=== PATIENT | female | born 1960 | race Caucasian/White ===

== ENCOUNTER 2020-06-13 11:42 | Outpatient (CLI) | payer OTHER, SELFPAY ==
[2020-06-13 12:45] LABS: Anion Gap 9.4 mmol/L (7-16); Blood Urea Nitrogen 14 mg/dL (7-17); Calcium 9.2 mg/dL (8.4-10.2); Carbon Dioxide 28 mmol/L (22-30); Chloride 101 mmol/L (98-107); Cholesterol 200 mg/dL (0-200); Estimated Glomerular Filt Rate > 60; Glucose 84 mg/dL (65-105); HDL Direct 54 mg/dL; Potassium 4.4 mmol/L (3.4-5.0); Sodium 134 mmol/L (137-145); Triglycerides 88 mg/dL (<150)
[2020-06-13 12:55] LABS: LDL Cholesterol Direct 114 mg/dL
[2020-06-13 14:02] LABS: Hepatitis C Virus Antibody Negative (Negative)
== END 2020-06-13 11:43 | disposition home or self-care (01) ==
LOC: ANHLAB 11:48
PROVIDERS: PCP Family Medicine; Visit Provider Family Medicine
DX: Z00.00 Encounter for general adult medical examination without abnormal findings (principal); Z12.39 Encounter for other screening for malignant neoplasm of breast
CPT/HCPCS: 36415; 80048; 80061; 86803

== ENCOUNTER 2020-07-04 10:36 | Outpatient (CLI) | payer OTHER, SELFPAY ==
--- NOTE | ~2020-07-04 | MM_ITS ---
EXAMINATION: MM screening eric BI w leigh ann HISTORY: Screening mammogram TECHNIQUE: Craniocaudal and mediolateral oblique 3-D tomosynthesis images were obtained and synthetic 2-D images were generated. CAD analysis was submitted and interpreted. COMPARISON: No prior mammogram is available for comparison at this institution. BREAST PARENCHYMAL COMPOSITION: There are scattered areas of fibroglandular density. A the paranasal FINDINGS: There is no evidence of suspicious mass, calcification, or architectural distortion to sugg est malignancy in either breast. There has been no suspicious interval change. IMPRESSION: 1. No mammographic evidence of malignancy. 2. Recommend routine screening mammography in one year. BI-RADS Category 1: Negative Reviewed, dictated and finalized at location A.
== END 2020-07-04 10:37 | disposition home or self-care (01) ==
LOC: ANHIMG 10:43
PROVIDERS: PCP Family Medicine; Visit Provider Family Medicine
DX: Z12.31 Encounter for screening mammogram for malignant neoplasm of breast (principal)
CPT/HCPCS: 77063; 77067

== ENCOUNTER 2021-08-14 16:20 | Outpatient (CLI) | payer OTHER, SELFPAY ==
--- NOTE | ~2021-08-14 | MM_ITS ---
EXAMINATION: MM screening eric BI w leigh ann HISTORY: Screening TECHNIQUE: Craniocaudal and mediolateral oblique 3-D tomosynthesis images were obtained and synthetic 2-D images were generated. CAD analysis was submitted and interpreted. COMPARISON: 07/04/2020 BREAST PARENCHYMAL COMPOSITION: There are scattered areas of fibroglandular density. FINDINGS: There is no evidence of suspicious mass, calcification, or architectural distortion to sugg est malignancy in either breast. There has been no suspicious interval change. IMPRESSION: 1. No mammographic evidence of malignancy. 2. Recommend routine screening mammography in one year. BI-RADS Category 1: Negative Reviewed, dictated and finalized at location A.
== END 2021-08-14 16:21 | disposition home or self-care (01) ==
LOC: ANHIMG 16:24
PROVIDERS: PCP Family Medicine; Visit Provider Obstetrics & Gynecology
DX: Z12.31 Encounter for screening mammogram for malignant neoplasm of breast (principal)
CPT/HCPCS: 77063; 77067

== ENCOUNTER 2022-11-18 14:53 | Outpatient (CLI) | payer OTHER, SELFPAY ==
--- NOTE | ~2022-11-18 | MM_ITS ---
EXAMINATION: MM screening eric BI w leigh ann HISTORY: Screening mammogram TECHNIQUE: Craniocaudal and mediolateral oblique 3-D tomosynthesis images were obtained and synthetic 2-D images were generated. CAD analysis was submitted and interpreted. COMPARISON: 08/14/2021, 07/04/2020 BREAST PARENCHYMAL COMPOSITION: There are scattered areas of fibroglandular density. FINDINGS: No suspicious mass, calcification, or architectural distortion are identified in either mj ast to suggest malignancy. There has been no suspicious interval change. IMPRESSION: 1. No mammographic evidence of malignancy. 2. Recommend routine screening mammography in one year. BI-RADS Category 1: Negative Reviewed, dictated and finalized at location A. NO FLOOR PERSON
== END 2022-11-18 14:54 | disposition home or self-care (01) ==
PROVIDERS: PCP Family Medicine; Visit Provider Family Medicine
DX: Z12.31 Encounter for screening mammogram for malignant neoplasm of breast (principal)
CPT/HCPCS: 77063; 77067

== ENCOUNTER 2023-10-21 01:28 | Day surgery (SDC) | payer OTHER, SELFPAY ==
[2023-10-07 09:53] VITALS: BMI 29.6
--- NOTE | 2023-10-19 09:23 | SUR.PREOP ---
Patient called regarding upcoming procedure. Reviewed preop instructions, appointment times, and procedure prep.
--- NOTE | 2023-10-20 18:17 | PM.HPGS ---
History of Present Illness History of Present Illness Consent: Risks, benefits, and alternatives have been discussed and questions answered. Patient agrees to proceed with procedure. Chief complaint: + cologuard Narrative: Missy Anton is a 63 year old female Referred for colon cancer screening. She had a positive Cologuard. Review of Systems Review of Systems: All systems reviewed & are unremarkable except as noted in HPI and below PMFSH Social History Social History Smoking status: Never smoker Substance use type: does not use Living arrangements: with family Spiritual care concerns: No Meds Home Medications and Allergies Home Medications Medication Instructions Recorded Confirmed Type atorvastatin 20 mg tablet 20 mg PO DAILY 10/07/23 10/07/23 History levothyroxine 75 mcg tablet 75 mcg PO DAILY 10/07/23 10/21/23 History Allergies Allergy/AdvReac Type Severity Reaction Status Date / Time No Known Allergies Allergy Verified 10/21/23 08:37 Exam Resp: Auscultation: clear to auscultation bilaterally Cardio: Rate: regular rate Rhythm: regular rhythm GI: GI Palp: Yes Soft to palpation and No Tenderness to palpation present (GI) Assessment and Plan Assessment and plan (1) Positive colorectal cancer screening using Cologuard test: Code(s): R19.5 - Other fecal abnormalities Status: Acute Assessment and Plan: Colonoscopy with possible biopsy or polypectomy or cautery or injection of substances.
[2023-10-21 08:38] VITALS: BP 114/60; PULSE 77; RESP 18; TEMP 36.2; O2SAT 100
[2023-10-21] MEDS: LACTATED RINGERS 1,000 ML 150 ML IV CONT (08:42)
[2023-10-21 10:01] VITALS: BP 92/56; PULSE 73; RESP 30; O2SAT 98
[2023-10-21 10:11] VITALS: BP 113/66; PULSE 69; RESP 23; O2SAT 100
[2023-10-21 10:21] VITALS: BP 115/71; PULSE 66; RESP 19; O2SAT 100
== END 2023-10-21 10:28 | disposition home or self-care (01) ==
PROVIDERS: PCP Family Medicine; Visit Provider Internal Medicine Gastroenterology
PROC: 0DJD8ZZ Inspection of Lower Intestinal Tract, Via Natural or Artificial Opening Endoscopic (ICD-10-PCS; CPT 45378; principal; 2023-10-21 09:30)
DX: Z12.11 Encounter for screening for malignant neoplasm of colon (principal); R19.5 Other fecal abnormalities
CPT/HCPCS: 45378; J2704; J7120

== ENCOUNTER 2024-04-12 16:48 | Outpatient (CLI) | payer OTHER, SELFPAY ==
--- NOTE | ~2024-04-12 | MM_ITS ---
EXAMINATION: MM screening eric BI w leigh ann HISTORY: Screening TECHNIQUE: Craniocaudal and mediolateral oblique 3-D tomosynthesis images were obtained and synthetic 2-D images were generated. CAD analysis was submitted and interpreted. COMPARISON: Comparison to multiple prior studies sequentially, with oldest reviewed study dated 07/04. BREAST PARENCHYMAL COMPOSITION: Not dense: There are scattered areas of fibroglandular density. FINDINGS: There is no evidence of suspicious mass, calcification, or architectural distortion to sugg est malignancy in either breast. There has been no suspicious interval change. IMPRESSION: 1. No mammographic evidence of malignancy. 2. Recommend routine screening mammography in one year. BI-RADS Category 1: Negative Reviewed, dictated and finalized at location B.
== END 2024-04-12 16:49 | disposition home or self-care (01) ==
PROVIDERS: Visit Provider Family Medicine
DX: Z12.31 Encounter for screening mammogram for malignant neoplasm of breast (principal)
CPT/HCPCS: 77063; 77067

== ENCOUNTER 2025-03-22 09:47 | Outpatient (CLI) | payer OTHER, SELFPAY ==
--- OUTSIDE RECORDS SUMMARY | 2025-03-22 10:33 | XMS_ITS | Referral Summary ---
Author Organization [facility] Address [address] [place] [address] Care Team Providers Care Vending Supervisor Name Role Phone Norma Perry BOARDING HOUSE COOK Primary Care Provider Allergies No known active allergies Medications atorvastatin (LIPITOR) 20 mg tablet Take 1 tablet every day by oral route as directed for 90 days. 04/04/2024 Active levothyroxine (SYNTHROID) 75 mcg tablet Take 1 tablet (75 mcg total) by mouth daily 04/04/2024 Active vitamin E 400 unit capsule Take 1 capsule (400 Units total) by mouth Active Active Problems Problem Noted Date Diagnosed Date Hyperlipidemia 09/02/2023 Hypothyroidism 05/19/2005 Social History Tobacco Use Types Packs/Day Years Used Date Smoking Tobacco: Never Smokeless Tobacco: Never AUDIT-C Answer Date Recorded Q1: How often do you have a drink containing alc ohol? 2-4 times a month 07/07/2024 Average Number of Drinks Not on file 024 Frequency of Binge Drinking Not on file 06/17 Personal Safety Answer Date Recorded Getting School Help Needed Not on file 04/12 Comments Unknown Sex and Gender Information Value Date Recorded Sex Assigned at Not on file Legal Sex Female 2:25 PM CDT Gender Identity Not on file Sexual Orientation Not on file Last Filed Vital Signs Vital Sign Reading Time Taken Comments Blood Pressure 108/69 07/07/2024 8:02 AM CDT Pulse 74 07/07/2024 8:02 AM CDT Temperature 36.2 C (97.2 F) 07/07/2024 8:02 AM CDT Respiratory Rate - - Oxygen Saturation 100% 07/07/2024 8:02 AM CDT Inhaled Oxygen Concentration - - Weight 88.9 kg (196 lb) 07/07/2024 8:02 AM CDT Height 172.7 cm (5' 8 ) 07/07/2024 8:02 AM CDT Body Mass Index 29.8 07/07/2024 8:02 AM CDT Plan of Treatment Not on file Insurance [facility] [id number] [facility] [id number] Care Teams Vending Supervisor Relationship Specialty Start Date End Date Norma Perry NP [address] [facility] [place] [address] PCP - General Nurse Practitioner 07/07/24
--- OUTSIDE RECORDS SUMMARY | 2025-03-22 10:33 | XMS_ITS | Clinical Summary ---
Author Organization [facility] Address [facility] [place] [address] Care Team Providers Care Solderer Assembly Repair Name Role Phone Chel Palomares NP Primary Care Provider [phone] Gilberto Osei MD Unavailable [phone] Allergies No known active allergies Medications atorvastatin (LIPITOR) 20 MG tablet Take 1 tablet (20 mg total) by mouth daily. DIRECTED Active levothyroxine (SYNTHROID) 75 MCG tablet Take 1 tablet (75 mcg total) by mouth daily. Active vitamin D3, cholecalciferol, (D 1000) 25 mcg capsule Take 1 capsule (1,000 Units total) by mouth. Active ubrogepant (UBRELVY) 100 MG tabletIndication s:Migraine without aura, not intractable, without status migrainosus Take 1 tablet (100 mg total) by mouth 2 (two) times daily as needed. Max of 2 tablets (200 mg) in 24 hours 16 tablet 11 4 Active Active Problems No known active problems Encounters Date Type Department Care Team Description 01/26/2025 [facility] [address] [address] Jayy Brown MD Results 01/16/2025 2:45 PM TRAVEL DIRECTOR Office Visit [facility] [address] [place] [address] Jayy Brown MD Follow Up (2-3mo) 01/16/2025 Travel 12/23/2024 10:40 AM TRAVEL DIRECTOR Office Visit [facility] [address] [facility] [place], [address] [place] [phone] Gilberto Osei MD Follow Up (3mo migraine) 12/23/2024 Travel from Last 3 Months Family History Medical History Relation Comments Dementia Father Stroke Father Cancer Paternal Uncle Relation Status Comments Father Mother Alive Paternal Uncle Social History Tobacco Use Types Packs/Day Years Used Date Smoking Tobacco: Never Passive Smoke Exposure: Never Smokeless Tobacco: Never Tobacco Cessation:Counseling Given: Yes Alcohol Use Standard Drinks/Week Comments Yes 0 (1 standard drink = 0.6 oz pur e alcohol) special occations only PHQ-2 Answer Date Recorded Patient Health Questionnaire-2 Score 0 09/27/2024 Comments No Sex and Gender Information Value Date Recorded Sex Assigned at Female 12/14/2024 11:29 AM TRAVEL DIRECTOR Legal Sex Female 1:44 PM CDT Gender Identity Not on file Sexual Orientation Not on file Last Filed Vital Signs Vital Sign Reading Time Taken Comments Blood Pressure 118/72 01/16/2025 2:58 PM TRAVEL DIRECTOR Pulse 66 01/16/2025 2:58 PM TRAVEL DIRECTOR Temperature 36.6 C (97.8 F) 12/23/2024 10:47 AM TRAVEL DIRECTOR Respiratory Rate - - Oxygen Saturation 93% 01/16/2025 2:58 PM TRAVEL DIRECTOR Inhaled Oxygen Concentration - - Weight 90.6 kg (199 lb 12.8 oz) 01/16/2025 2:58 PM TRAVEL DIRECTOR Height 172.7 cm (5' 8 ) 01/16/2025 2:58 PM TRAVEL DIRECTOR Body Mass Index 30.38 01/16/2025 2:58 PM TRAVEL DIRECTOR Plan of Treatment Upcoming Encounters Date Type Department Care Team (Late st Contact Info) Description 04/13/2025 12:45 PM CDT Appointment [facility] [place] [address] Jayy Brown MD [address] [facility] [place] [address] 04/13/2025 2:15 PM CDT Office Visit [facility] [place] [place] [address] Jayy Brown MD [address] [facility] [place] [address] 05/25/2025 8:20 AM CDT [facility] [address] [facility] [place], [address] [place] [phone] Son Yip MD [address] [facility] [place] [address] 06/05/2025 11:20 AM CDT [facility] [address] [facility] [place], [address] [place] [phone] Gilberto Osei MD [address] [facility] [place] [address] 08/07/2025 9:15 AM CDT Office Visit [facility] [address] [place] [address] Jayy Brown MD [address] [facility] [place] [address] Health Maintenance Due Date Last Done Comments Colorectal Cancer Screening Colonoscopy (10 Years) 1962 Annual Physical 1965 Hepatitis C 1980 Cervical Cancer Screening Pap with HPV Testing (Age 30 to 64) Every 5 Years 1992 Pneumococcal Vaccine: 50+ Years (1 of 1 - PCV) 2012 Mammogram Screening 12/27/2020 12/27/2018, 06/08/2017, 02/04/2016, Additional history exists COVID-19 Vaccine ( season) 2024 09/02/2022, 06/10/2022, 10/03/2021, Additional history exists Cervical Cancer Screening Pap Smear (Age 30 to 64) Every 3 Years 08/06/2024 08/06/2021 Cervical Cancer Screening with HPV 08/06/2024 PHQ-2 (Physician Tejon) 11/16/2024 09/27/2024 DTaP, Tdap and Td Vaccines (4 - Td or Tdap) 01/03/2029 01/03/2019, 12/20/2018, 10/16/2008, Additional history exists RSV Immunization or 60+ Years (1 - 1-dose 75+ series) 2037 Zoster Vaccines Completed 09/18/2020, 01/2020, 07/04/2020, Additional history exists Meningococcal B Vaccine Aged Out No l onger eligible based on patient's age to complete this topic Meningococcal Vaccine Aged Out No ryan shirley eligible based on patient's age to complete this topic RSV Immunizations Under 20 Months Aged Out No longer eligible based on patient's age to complete this topic Procedures Procedure Name Priority Date/Time Associated Diagnosis Comments EVENT RECORDER (ECG) UP TO 30 DAYS COMPLETE Routine 01/16/2025 3:43 PM TRAVEL DIRECTOR Palpitations Dizziness from Last 3 Months Results * CLINIC - OUTPATIENT EVENT RECORDER (ECG) UP TO 30 DAYS COMPLETE (Holter) (01/16/2025 3:43 PM TRAVEL DIRECTOR) [facility]ative [facility] 01/16/2025 3:43 PM TRAVEL DIRECTOR [place], [place] [address] MOBILE CARDIAC BULLDOZER PRESS OPERATOR REPORT Patient Name: Missy Anton : 1960 [employer]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 Interpretable data was 25 days, 18 hours and 12 minutes (88% of monitoring period). The baseline rhythm was Sinus Rhythm with heart rates ranged between 51 and 189 beats per minute, with average rate of 71 beats per minute. No Second Degree AV Block Type II. No Third Degree AV Block. No Pauses. There were 2,615 Supraventricular Ectopic beats with a burden of <1%. 9 Supraventricular Tachycardia events - the longest episode was 8.1s on 12/29 19:45, and the fastest episode was 187 BPM on 01/06 06:49. There were 835 Ventricular Ectopic beats with a burden of <1%. No Ventricular Tachycardia. No Atrial Fibrillation. 6 patient triggered events, 1 had symptoms specified - all in normal sinus rhythm. CONCLUSION: A 26-day mobile cardiac telemetry was only notable Interpreting Auto Cleaner: Dr. Jayy Gann Transcribed date: 01/26/2025 us Jayy Brown MD CV VASCULAR ORDERABLES Fi nal Result [facility] from Last 3 Months Insurance [employer] [facility] Care Teams Solderer Assembly Repair Relationship Specialty Start Date End Date Chel Palomares NP [address] [place] [phone] PCP - General 09/26/24 Gilberto Osei MD [address] [place] [address] Physician NEUROMUSCULOSKELETAL MEDICINE 09/27/24
--- OUTSIDE RECORDS SUMMARY | 2025-03-22 10:33 | XMS_ITS | Clinical Summary ---
Author Organization [facility] Address [address] [place] [address] Care Team Providers Care Well Service Floorperson Name Role Phone Norma Perry JOCKEY AGENT Primary Care Provider Allergies No known active [...] on file Sexual Orientation Not on file Obstetrics History Last Filed Vital Signs Vital Sign Reading [...] 07/07/2024 8:02 AM CDT Plan of Treatment Health Maintenance Due Date Last Done Comments Cervical Cancer Screening 1960 Colon Cancer Screening-Colonoscopy 1962 Depression Screening 1962 Hepatitis C Screening 1962 Hepatitis B Screening 1980 Regular Well Visit/Exam 18-64 1980 Breast Cancer Screening-Mammogram 11/18/2023 11/18/2022 Covid-19 Vaccine ( season) 2024 09/02/2022, 06/10/2022, 10/03/2021, Additional history exists Influenza Vaccine (#1) 2024 , 09/02/2022, 08/07/2021, Additional history exists DTaP/Tdap/Td Vaccine (4 - Td or Tdap) 01/03/2029 01/03/2019, 12/20/2018, 10/16/2008, Additional history exists Zoster Vaccine Completed 09/18/2020, 06/16, 08/14/2014 Pneumococcal vaccine <65 Aged Out No longer eligible based on patient's age to complete this topic Insurance [facility] [id number] [facility] [id number] Care Teams Well Service Floorperson Relationship Specialty Start Date End Date Norma Perry NP [address] [facility] [place], [place] [id number] PCP - General Nurse Practitioner 07/07/24
--- OUTSIDE RECORDS SUMMARY | 2025-03-22 10:34 | XMS_ITS | Clinical Summary ---
Author Organization [facility] Address [address] [place] [address] Care Team Providers Care Material Requirements Planning Manager Name Role Phone Unavailable Primary Care Provider Unavailabl e Immunizations Immunization Administration Dates Next Due Covid-19, Mrna, Lnp-s, PF, 5 0 mcg/0.25 mL dose (Moderna) 10/03/2021 Social History Tobacco Use Types Packs/Day Years Used Date Smoking Tobacco: Never Assessed Comments Unknown Sex and Gender Information Value Date Recorded Sex Assigned at Not on file Legal Sex Female 12:42 PM LPN CMA Gender Identity Not on file Sexual Orientation Not on file Plan of Treatment Health Maintenance Due Date Last Done Comments Hepatitis C Virus (HCV) Screening 1962 Colonoscopy 2007 Colorectal Cancer Screening 2007 Cologuard 2012 Immunochemical Fecal Occult Blood 2012 Pneumococcal Immunization (50+ years) (1 of 1 - PCV) 2012 Influenza Immunization (#1) 07/17/202407/18, 09/10/2020, 09/10/2020, Additional history exists SARS-COV-2 Immunization ( season) 2024 10/03/2021, 03/01/2021, 01/29/2021 Respiratory Syncytial Virus (RSV) Immunization (Adult) (1 - 1-dose 75+ series) 2037 DTaP/Tdap/Td Immunization Discontinued 2018, 12/20/2018, 10/16/2008, Additional history exists TdaP Immunization Completed 01/03/2019, , 10/16/2008 Zoster Immunization Completed 09/18/2020, 09/18/2020, 07/04/2020, Additional history exists Hepatitis B Immunization Aged Out No longer eligible based on patient's age to complete this topic Meningococcal Immunization (ACWY) Aged Out No longer eligible based on patient's age to complete this topic Rotavirus Immunization Aged Out No lo nger eligible based on patient's age to complete this topic
--- OUTSIDE RECORDS SUMMARY | 2025-03-22 10:34 | XMS_ITS | Data Portability ---
Author Organization [facility], [facility] Address [address] [place] [address] Care Team Providers Care Research Associate Molecular Biology Name Role Phone CHERRIE JUAN ANOHEMY Primary Care Provider Assessment Encounter Date Assessment Date Assessment LastModified by Organization Details LastModified Time 08/06/2021 08/06/2021 healthy female exam/menopaus e patient declines std testing pap done with HPV mammogram ordered and encouraged colonoscopy due next year dexa baseline next year. Encouraged weight bearing exercise and 1500mg daily of Calcium with Vitamin D FU 1 year or prn Not available 08/06/2021 13:32:53 Plan of Treatment Reminders Order Date Submit Date Provider Last Modified By Organization Details Last Modified Time Details Appointments None record ed. Lab None record ed. Referral None record ed. Procedures None record ed. Surgeries None record ed. Imaging None record ed. Medication Orders None record ed. Patient TargetsNo targets recorded. Patient InstructionsNo instructions recorded. 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 None Reported. Results Created Date Observation Date Name Description Value Unit Range Abnormal Flag Note LastModifiedBy Organization Detail LastModifiedTime 08/06/20 21 08/06/2021 IMAGE GUIDE D PAP AND HPV REGAR DLESS image guided Pap, HPV regardless of Pap result SEE RESULT S BELOW CASE REPOR T: Cytol ogy Gynec ologi trudi Repor t Case: [id number] Autho deja g Provi fabiano: Robina Mancera MD Colle cted: 08/06 1201 Order ing Locat ion: [place] [facility] Recei deepali: 08/07 0116 First Scree n: Sherm an, Patito Speci men: Scree terrance Pap - Image d, Cervi x STATE MENT OF ADEQU ACY: Satis facto ry for evalu ation Trans forma tion zone compo nent canno t be defin itive ly ident ified due to the prese nce of atrop hy or other hormo nal abarca es FINAL DIAGN OSIS: Negat brittanie for Intra epith elial Lesio n or [place] (NIL) Atrop hic cell zeeshan rn Elect hector condon viki d by Patito Win on 2020 at 4:38 PM ----- ----- ----- ----- ----- ----- ----- ----- ----- ----- ----- ----- ----- ----- ----- ----- ----- ---- HPV RESUL TS: HPV mRNA E6/E7 : No HPV mRNA Detec joce NOTE: This high risk HPV mRNA assay detec ts fourt een high- risk HPV types (16, 18, 31, 33, 35, 39, 45, 51, 52, 56, 58, 59, 66, 68) witho ut diffe renti ation . COMME NT: Note: This speci men was revie wed by a Cytot echno logis t and/o r Patho logis t (as indic ated in this repor t) after evalu ation using the Thinp rep Imagi ng Syste m. CLINI TRUDI INFOR MATIO N: Menst rual Statu s: LMP (if appli cable ): Clini trudi Histo ry/Pr eviou s Pap: Type of Neopl tammi (if appli cable ): Signi fican t Clini trudi Findi ngs: Other Histo ry: Hormo derrell (if appli cable ): PAP EDUCA MIGUEL L NOTE: The Pap Test is a scree terrance test with an inher ent false negat brittanie rate. Liqui d-bas e sampl ing may decre ase, but will not elimi mya, false negat brittanie resul ts. A negat brittanie resul t does not precl ude the prese nce and/o r devel opmen t of disea se, since the prese nce of abnor mal cells in the sampl e depen ds on the locat ion of the lesio n and sampl ing techn ique. [place] nued regul ar scree terrance is the best metho d of cance r preve ntion . If repor joce cytol ogic findi ng do not corre late with physi trudi and/o r histo rical findi ngs, furth er inves tigat ion is recom aniyah d, as clini yuli espinal nted. Not Available [facility] (Lab) [address], [place], [address], 08/09/2021 17:40:49 08/15/2008/14/2021 MAMMO , scree terrance, bilat eral No observ ation record ed. [address], [address], 08/16/2021 09:09:06 Result Notes None recorded. Problems Name Problem SNOMED Code Status Onset Date Resolution Date Notes Provider Name and Address Organization Details Recorded Time Body mass index 30+ - obesity 878386550 Active 021 Robina Snyder MD [address], [place], [address], [facility] 13:32:29 Problem Notes None recorded. Procedures Surgical History None recorded. Imaging Results Imaging Date Name Status LastModified by Organiz ation Details LastModified Time 08/14/2021 MAMMO, screening, bilateral completed [address], [address], 08/16/2021 09:09:06 Procedure Notes None recorded. Medical Equipment None Reported. Allergies No known drug allergies Medications Name Sig Start Date Stop Date Status Note LastModified by Organization Details LastModified Time levothyroxine active Not Available Not Available Not Available Vitals Date Recorded Body height Body mass index (BMI) Body weight Systolic blood pressure Diastolic blood pressure Provider Name and Address Organization Details Last Updated DateTime 08/06/2021 172.72 cm 30.7 kg/m2 23417.66 g 121 mm[Hg] 79 mm[Hg] Julissa Maldonado [facility] 11:30:27 Social History Question Answer Notes LastModified by Organizat ion Details LastModified Time Tobacco Smoking Status Never Smoker Julissa saenz, [facility] 08/06/2021 11:30:42 What Is Your Level Of Alcohol Consumption? None Information not available 08/06/2021 Do You Use Any Illicit Or Recreational Drugs? No Information not available 08/06/2021 Do You Or Have You Ever Used Any Other Forms Of Tobacco Or Nicotine? No Information not available 08/06/2021 Sex: Unknown Functional Status None recorded. Mental Status None recorded. Family History Relationship Description Onset Age of this Age Resolved Age Notes LastModified by Organization Details LastModified Time Mother Anemia [email or web address] Not available 11:32:48 Mother Hypercholest erolemia smcaley Not available 2020 11:33:04 Mother Hypertensive disorder smcaley Not available 2020 11:33:11 Mother Disorder of thyroid gland smcaley Not available 2020 11:33:52 Brother Hypercholest erolemia smcaley Not available 2020 11:33:04 Paternal Aunt Carcinoma in situ of ovary smcaley Not available 2020 11:33:37 Maternal Aunt Cerebrovascu lar accident smcaley Not available 11:36:33 Maternal Uncle Cerebrovascu lar accident smcaley Not available 11:36:33 Medical History Condition Response Allergies (Food, seasonal, environmental ) N Other N Breast Cancer N Drug/Latex Allergies/Reactions N Blood Transfusion N Dermatologic Disorders N Lung Disease N Defects or Inherited Disease N Breast Problem N Gestational Diabetes N Hematologic disorders N Anesthesia Complications N History of STI N Deep Vein Thrombosis N Polycystic ovary syndrome N Anxiety Disorder N Autoimmune disease N Arthritis N Infertility N Polyps N Acid Reflux (GERD) N History of abnormal pap N Cancer N Stroke N Varicosities N Neurologic/Epilepsy N Endometriosis N High Cholesterol N Headaches N Fibromyalgia N Kidney Disease N Heart Problems N Kidney or Bladder Problems N Thyroid Problems Y GI Problems N Eating Disorder N Anemia N Art (IVF or FET) N Psychiatric Illness N Ovarian Cancer N Diabetes N Pulmonary (TB, Asthma) N Hepatitis/Liver Disease N No Past Medical History N Eczema N Urinary Tract Infection N Abuse/Domestic Violence N Asthma N Trauma/Violence N Depression/ depression N Heart Disease N Pre-Eclampsia N Hypertension N Osteoporosis N Thrombophilias N Gynecological History Statement/Question Response Date of Last Pap Smear Current Control Method None Obstetrics History GPAL:G 0 P 0 0 0 0 Past Encounters Encounter ID Performer Location Encounter Start Date Encounter Closed Date Diagnosis/Indication Diagnosis SNOMED-CT Code Diagnosis ICD10 Code Diagnosis Note [id number] Robina Snyder MD [place] [address] [address] 08/06/2021 11:04:40 08/06/2021 13:37:44 Gynecologic examination 78535090 Z01.419 Z11.51 Body mass index 30+ - obesity 007856222 Z68.30 Health Concerns Section Related Observation LastModified by Organization Detai ls LastModified Time None Recorded Concern Status LastModified by Organization Details LastModified Time None Recorded Advance Directives Directive None Recorded Payers Encounter Date Sequence Insurance Name Policy Number Policy Brennan Covered Member ID Brennan Member ID Guarantor Name 08/06/2021 1 [id number] Missy Anton [id number] OI [id number] SOI Missy Reyesivan Notes Date Note Type Note Provider Name and Address Organization Details Recorded Time 08/06/2021 text/html Patient is a 61yo G0 (4 adopted children- daughters Sarita, John, Tila here also) who presents for an annual exam. Menopause 6 years. On prempro until a year ago, doing ok without it. Paps all normal, last one maybe 5-6 years ago. last pap-5-6 years mammo-2020 colonoscopy-9 years ago dexa-none sexually active-y seatbelts-y exercise-y depression-denie s domestic violence-denies tobacco-n concerns- Robina Snyder MD [address], [place], [address], [facility] 08/06/2021 13:33:36 OBGyn Episode No OBEpisode recorded.
--- OUTSIDE RECORDS SUMMARY | 2025-03-22 10:34 | XMS_ITS ---
Author Organization Unknown Medications Medication Instructions Effective Dates (start - stop) Status atorvastatin 20 MG Oral Tablet 2023-09-30 T00:00:00Z - Completed levothyroxine sodium 0.075 M G Oral Tablet - Completed atorvastatin 20 MG Oral Tablet 2023-12-25 T00:00:00Z - Completed levothyroxine sodium 0.075 M G Oral Tablet - Completed - - Compl eted atorvastatin 20 MG Oral Tablet 2024-02-02 T00:00:00Z - Completed levothyroxine sodium 0.075 M G Oral Tablet - Completed naproxen 500 MG Oral Tablet [id number] :00:00Z - Completed levothyroxine sodium 0.075 M G Oral Tablet - Completed levothyroxine sodium 0.075 M G Oral Tablet - Completed - - Compl eted levothyroxine sodium 0.075 M G Oral Tablet - Completed atorvastatin 20 MG Oral Tablet 2023-09-04 T00:00:00Z - Completed levothyroxine sodium 0.075 M G Oral Tablet - Completed Patient Care team information Name Category Status Period Participants - - Proposed period not known -
--- OUTSIDE RECORDS SUMMARY | 2025-03-22 10:34 | XMS_ITS | CONTINUITY OF CARE DOCUMENT ---
Author Name yuliet horvath Address Unknown Organization [facility] Address [address] [place] [address] Phone [phone] Care Team Providers Care Category Development Manager Name Role Phone Titus DESOUZA, Melanie Unavailable Charity DESOUZA, Runda Unavailable CHERRIE DESOUZA, RUNDA Unavailable PROBLEMS Condition Status Date Provider Notes Shortness of breath active Yared Vann Family hx of heart disease active Yared Ahme dzai Dizziness active Yared Carltonzai Hypothyroidism active Yared Vann ENCOUNTERS Date Type Provider Location Encounter Diagnosis - In-person encounter Office Visit Melanie Qureshi MD [facility] - In-person encounter Office Visit Melanie Qureshi MD [facility] VITAL SIGNS Date Observation Value Provider Body Mass Index (Ratio) 30.71 kg/m2 Anatoliy Qureshi MD blood pressure, diastolic 95 mm[Hg] Li nkLogic blood pressure, systolic 125 mm[Hg] Carlee kLogic blood pressure, cuff size regular Ja rret blood pressure, diastolic 95 mm[Hg] Ja rret blood pressure, systolic 125 mm[Hg] Jar ret pulse rate 71 /min Facundo y oxygen saturation, oximetry 96 % respiratory rate E&M 12 /min Facundo weight E&M 202 [lb_av] Facundo y height E&M 68 [in_i] Facundo y Body Mass Index (Ratio) 31.93 kg/m2 Anatoliy Qureshi MD blood pressure, diastolic 70 mm[Hg] Li nkLogic blood pressure, systolic 130 mm[Hg] Carlee kLog respiratory rate E&M 18 /min Lina Gunterand pulse rate 97 /min Shawna martínez blood pressure, cuff size large Sc jasbir Farnham blood pressure, diastolic 70 mm[Hg] [facility] blood pressure, systolic 130 mm[Hg] [facility] oxygen saturation, oximetry 96 % Shawna Andujar height E&M 68 [in_i] Shawna martínez weight E&M 210 [lb_av] Shawna martínez ALLERGIES No Known Drug Allergies HISTORY OF MEDICATION USE Medication Status Instructions Dates Provider Indications Com ments atorvastatin 20 mg tablet active Yared Vann levothyroxine 50 mcg tablet active Shawna Andujar SOCIAL HISTORY Date Observation Value Provider smoking status Never smoker Yared Vann social history E&M S moking History: Deanna adams has never smoked. Melanie Qureshi MD social history reviewed E&M revi ewed - no changes required Melanie Qureshi MD smoking status Never smoker Shawna Ross INSURANCE PROVIDERS Payer name Policy type / Coverage type [place] [employer] green party ID [employer] Other [id number] ADVANCE DIRECTIVES Name Date DISCUSSED - NO DECISION MADE TREATMENT PLAN Date Name Performer Cardiology Yared Vann Cardiology Yared Vann Cardiology Yared Vann Date Name Carotid Duplex Bilat eral Aorta Duplex Ultraso und CT, Coronary Calcium Score HISTORY OF PROCEDURES Procedure Date Procedure Name Provider Procedure Notes S tatus EKG Melanie Qureshi MD completed CT- Coronary CA score Melanie Qureshi MD completed EKG Melanie Qureshi MD completed
--- OUTSIDE RECORDS SUMMARY | 2025-03-22 10:34 | XMS_ITS | Data Portability ---
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 Lab FSH (follicle-s timulating hormone), serum [address] (Lab), [address] [place], [address], 4 08:15:39 lh (luteinizin g hormone), serum [address] (Lab), [address] [place], [address], 4 08:15:39 estrone (E1), free, serum [address] (Lab), [address] [place], [address], 4 08:15:40 glycohemogl obin, total, blood [address] (Lab), [address] [place], [address], 4 08:15:40 ESR (erythrocyt e sedimentati on rate), blood [address] (Lab), [address] [place], [address], 4 08:15:40 C-reactive protein, quantitativ e, serum or plasma [address] (Lab), [address] [place], [address], 4 08:15:40 REAGAN (antinuclea r antibodies) screen, serum [address] (Lab), [address] [place], [address], 4 08:15:40 rf (rheumatoid factor), serum [address] (Lab), [address] [place], [address], 4 08:15:40 adh (antidiuret ic hormone), serum or plasma 2022 023 [email or web address] [facility] (Lab), [address] [place], [address], 3 13:31:26 TSH, serum or plasma 2022 023 KENDALL [facility] (Lab), [address] [place], [address], 3 15:39:35 lipid panel, serum 2022 023 [facility] (Lab), [address] [place], [address], 3 14:33:22 CMP, serum or plasma 2022 023 [facility] (Lab), [address] [place], [address], 3 14:36:17 Referral neurologist referral 2023 024 [email or web address] [facility], [address], [place], [address], 4 12:52:50 molecular genetic pathologist referral 2022 023 [email or web address] Dee Castro DPM, [address] [place], [address], 4 08:41:51 Procedures colonoscopy screening (PROC) - Cologuard was positive. 2022 023 [email or web address] 256 Chris Garcia MD, [address], [place], [address], 3 10:24:25 Surgeries None recorded. Imaging XR, cervical spine, 2 or 3 view 2023 024 KENDALL Not available 4 12:22:38 CT, head, w/o contrast - *Please call pt to schedule* 2022 023 [facility], [address], [place], [address], 3 10:01:08 Medication Orders naproxen 500 mg tablet 2023 024 PRESC[id number], [address], [place], [place], [id number], 4 16:07:01 Patient TargetsNo targets recorded. Patient InstructionsNo instructions recorded. 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 in both feet Referring Physician: Rigoberto Nash, Family Medicine, Encounter Date: 09/02/2023 Neurologist Referral for Num bness of face Referring Physician: Chel Palomares Family Medicine, Encounter Date: 03/22/2024 Results Created Date Observation Date Name Description Value Unit Range Abnormal Flag Note LastModifiedBy Organization Detail LastModifiedTime 09/04/2009/04/2022 TSH thyroid-stim ulating hormone 7.320 uIU/m L 0.465- 4.680 high Not Available [facility] (Lab) [address] [place], [address], 09/04/2022 13:44:28 09/04/2009/04/2022 T4 FREE free T4 1.07 NG/dL 0.78-2 .19 Not Available [facility] (Lab) [address] [place], [address], 09/04/2022 13:28:30 09/04/2009/04/2022 COMPR EHENS BERNADETTE METAB OLIC PANEL sodium 141 mmol/ L 137-14 5 Not Available [facility] (Lab) [address] [place], [address], 09/04/2022 13:28:25 09/04/2009/04/2022 COMPR EHENS BERNADETTE METAB OLIC PANEL potassium 4.4 mmol/ L 3.5-5. 1 Not Available [facility] (Lab) [address] [place], [address], 09/04/2022 13:28:25 09/04/20 22 09/04/2022 COMPR EHENS BERNADETTE METAB OLIC PANEL chloride 107 mmol/ L 98-107 Not Available [facility] (Lab) [address] [place], [address], 09/04/2022 13:28:25 09/04/2006 0909/04/2022 COMPR EHENS BERNADETTE METAB OLIC PANEL carbon dioxide 31 mmol/ L 22-30 high Not Available [facility] (Lab) [address] [place], [address], 09/04/2022 13:28:25 09/04/20 22 09/04/2022 COMPR EHENS BERNADETTE METAB OLIC PANEL anion gap 7.4 mmol/ L 14-22 low Not Available [facility] (Lab) [address] [place], [address], 09/04/2022 13:28:25 09/04/20 22 09/04/2022 COMPR EHENS BERNADETTE METAB OLIC PANEL glucose 82 mg/dL 70-99 Not Available [facility] (Lab) [address] [place], [address], 09/04/2022 13:28:25 09/04/20 22 09/04/2022 COMPR EHENS BERNADETTE METAB OLIC PANEL BUN 9 mg/dL 8-19 Not Available [facility] (Lab) [address] [place], [address], 09/04/2022 13:28:25 09/04/20 22 09/04/2022 COMPR EHENS BERNADETTE METAB OLIC PANEL creatinine 0.73 mg/dL 0.66-1 .25 Not Available [facility] (Lab) [address] [place], [address], 09/04/2022 13:28:25 09/04/20 22 09/04/2022 COMPR EHENS BERNADETTE METAB OLIC PANEL GFR >60 Refer ence Range : Sutton ge GFR Healt hy Adult : >60 mL/mi n/1.7 3 m2 Chron ic Kidne y Disea se: 15-60 mL/mi n/1.7 3 m2 Kidne y Failu re: <15/m L/min /1.73 m2 www.n iddk. nih.g ov The MDRD study equat ion has not been valid ated in child jenny <18 years of age; pregn ant women ; the elder ly >85 years of age; or in some racia l or ethni c subgr oups, such as Hispa nics. Outsi de the valid ated luli eters , estim ated GFR is less accur ate, requi ring clini trudi judgm ent on a case- by-ca se basis . Clini trudi inter preta tion for other races and ages must be made by the clini javid. The MDRD study equat ion has not been valid ated for the evalu ation of serum creat inine relat ed to nutri mouna l statu s or medic ation usage . For perso ns <18 years of age, a pedia tric GFR calcu lator is avail able on the [facility] websi te: https ://jaden sosa.edgar dempsey.o rg/pr ofess ional s/kdo qi/gf r_cal culat or Not Available [facility] (Lab) [address] [place], [address], 09/04/2022 13:28:25 09/04/20 22 09/04/2022 COMPR EHENS BERNADETTE METAB OLIC PANEL alkaline phosphatase 68 U/L 38-126 Not Available [facility] (Lab) [address] [place], [address], 09/04/2022 13:28:25 09/04/20 22 09/04/2022 COMPR EHENS BERNADETTE METAB OLIC PANEL alanine aminotransfe rase 15 U/L 0-35 Not Available [facility] (Lab) [address] [place], [address], 09/04/2022 13:28:25 09/04/20 22 09/04/2022 COMPR EHENS BERNADETTE METAB OLIC PANEL aspartate aminotransfe rase 37 U/L 15-37 Not Available [facility] (Lab) [address] [place], [address], 09/04/2022 13:28:25 09/04/20 22 09/04/2022 COMPR EHENS BERNADETTE METAB OLIC PANEL bilirubin, total 0.40 mg/dL 0.20-1 .30 Not Available [facility] (Lab) [address] [place], [address], 09/04/2022 13:28:25 09/04/20 22 09/04/2022 COMPR EHENS BERNADETTE METAB OLIC PANEL calcium 9.4 mg/dL 8.4-10 .2 Not Available [facility] (Lab) [address] [place], [address], 09/04/2022 13:28:25 09/04/20 22 09/04/2022 COMPR EHENS BERNADETTE METAB OLIC PANEL total protein 6.8 g/dL 6.3-8. 2 Not Available [facility] (Lab) [address] [place], [address], 09/04/2022 13:28:25 09/04/20 22 09/04/2022 COMPR EHENS BERNADETTE METAB OLIC PANEL albumin 4.0 g/dL 3.4-5. 0 Not Available [facility] (Lab) [address] [place], [address], 09/04/2022 13:28:25 09/04/20 22 09/04/2022 COMPR EHENS BERNADETTE METAB OLIC PANEL globulin 2.8 g/dL 2.6-4. 2 Not Available [facility] (Lab) [address] [place], [address], 09/04/2022 13:28:25 09/04/20 22 09/04/2022 COMPR EHENS BERNADETTE METAB OLIC PANEL A/G ratio 1.4 ratio 1.0-2. 0 Not Available [facility] (Lab) [address] [place], [address], 09/04/2022 13:28:25 09/04/20 22 09/04/2022 LIPID PANEL cholesterol 213 mg/dL 140-19 9 high NIH QUANG NSUS RECOM MENDA TION FOR GÓMEZ STERO L: ADULT CHILD LOW RISK: <200 <170 BORDE RLINE : <200- 239 ----- HIGH RISK: >240 >200 Not Available [facility] (Lab) [address] [place], [address], 09/04/2022 13:28:20 09/04/20 22 09/04/2022 LIPID PANEL triglyceride s 93 mg/dL 0-150 NIH QUANG NSUS REPOR T RECOM MENDA TION FOR TRIGL YCERI ESTHER: ADULT CHILD LOW RISK: <150 ----- BODER LINE: 150-1 99 ----- HIGH RISK: >200 ----- Not Available [facility] (Lab) [address] [place], [address], 09/04/2022 13:28:20 09/04/20 22 09/04/2022 LIPID PANEL HDL cholesterol 49 mg/dL 40- Not Available [facility] (Lab) [address] [place], [address], 09/04/2022 13:28:20 09/04/20 22 09/04/2022 LIPID PANEL LDL cholesterol, calculated 145 mg/dL 0-130 high NIH QUANG NSUS REPOR T RECOM MENDA TIONS FOR LDL: ADULT CHILD LOW RISK <130 <110 (OPTI MAL LDL) <100 ----- BORDE RLINE : 130-1 59 ----- HIGH RISK: >160 >130 A TRIGL YCERI DE RESUL T >400 INVAL IDATE S THE CALCU LATIO N FOR LDL FRACT IONAT ION - THE LDL RESUL T WILL NOT BE REPOR ARLYN. Not Available [facility] (Lab) [address] [place], [address], 09/04/2022 13:28:20 09/15/20 22 09/15/2022 COLOG UARD cologuard result reportable positi ve negati ve abnormal POSIT BERNADETTE TEST RESUL T. A posit bernadette Colog uard resul t shoul d be follo wed with a colon oscop y or visua l exami natio n of the colon . The michelle l value (refe rence range ) for this assay is negat bernadette. TEST DESCR IPTIO N: Vado site algor ithmi c ady sis of stool DNA-b elizabeth bacon with hemog lobin immun oassa y. Quant itati ve value s of indiv idual bioma rkers are not repor table and are not assoc iated with indiv idual bioma rker resul t refer ence range s. Colog uard is inten ded for color ectal cance r scree terrance of adult s of eithe r sex, 45 years or older , who are at [facility] for color ectal cance r (CRC) . Colog uard has been appro deepali for use by the U.[place]. FDA. The perfo rmanc e of Colog uard was estab lishe d in a cross secti onal study of [facility] adult s aged 50-84 . Colog uard perfo rmanc e in patie nts ages 45 to 49 years was estim ated by sub-g roup ady sis of near- age group s. Colon oscop ies perfo rmed for a posit bernadette resul t may find as the most clini yuli signi issac t lesmaci n: color ectal cance r [4.0% ], advan diana adeno ma (incl uding sessi le alicia arlyn polyp s great er than or equal to 1cm diame ter) [20%] or non- advan diana adeno ma [31%] ; or no color ectal neopl tammi [45%] . These estim ates are deriv ed from a prosp ectiv e cross -sect ional scree terrance study of 10,00 0 indiv idual s at [facility] risk for color ectal cance r who were scree tripp with both Colog uard and colon oscop y. ([facility], N Engl J Med 2014; 370(1 4):12 86-12 97.) Colog uard may produ ce a false negat bernadette or false posit bernadette resul t (no color ectal cance r or preca ncero us polyp prese nt at colon oscop y follo w up). A negat bernadette Colog uard test resul t does not guara ntee the absen ce of CRC or advan diana adeno ma (pre- cance r). The curre nt Colog uard scree terrance inter gary is every 3 years . (Amer ican Cance r Socie ty and U.S. Multi -Soci ety Task Force ). Colog uard perfo rmanc e data in a 10,00 0 patie nt pivot al study using colon oscop y as the refer ence metho d can be acces sed at the follo wing locat ion: www.e xactl abs.c om/re sults . Addit ional descr iptio n of the Colog uard test proce ss, warni ngs and preca ution s can be found at www.c ologu amberly.c om. Not Available [facility] (Cologuard Orders Only) [address], [place], [address], 09/19/2022 17:23:03 09/02/20 23 09/02/2023 LIPID PANEL cholesterol 254 mg/dL 140-19 9 high NIH QUANG NSUS RECOM MENDA TION FOR GÓMEZ STERO L: ADULT CHILD LOW RISK: <200 <170 BORDE RLINE : <200- 239 ----- HIGH RISK: >240 >200 Not Available [facility] (Lab) [address] [place], [address], 09/02/2023 14:33:22 09/02/20 23 09/02/2023 LIPID PANEL triglyceride s 115 mg/dL 0-150 NIH QUANG NSUS REPOR T RECOM MENDA TION FOR TRIGL YCERI ESTHER: ADULT CHILD LOW RISK: <150 ----- BODER LINE: 150-1 99 ----- HIGH RISK: >200 ----- Not Available [facility] (Lab) [address] [place], [address], 09/02/2023 14:33:22 09/02/20 23 09/02/2023 LIPID PANEL HDL cholesterol 56 mg/dL 40- Not Available [facility] (Lab) [address] [place], [address], 09/02/2023 14:33:22 09/02/2009/02/2023 LIPID PANEL LDL cholesterol, calculated 175 mg/dL 0-130 high NIH QUANG NSUS REPOR T RECOM MENDA TIONS FOR LDL: ADULT CHILD LOW RISK <130 <110 (OPTI MAL LDL) <100 ----- BORDE RLINE : 130-1 59 ----- HIGH RISK: >160 >130 A TRIGL YCERI DE RESUL T >400 INVAL IDATE S THE CALCU LATIO N FOR LDL FRACT IONAT ION - THE LDL RESUL T WILL NOT BE REPOR ARLYN. Not Available [facility] (Lab) [address] [place], [address], 09/02/2023 14:33:22 09/02/20 23 09/02/2023 COMPR EHENS BERNADETTE METAB OLIC PANEL sodium 138 mmol/ L 137-14 5 Not Available [facility] (Lab) [address] [place], [address], 09/02/2023 15:55:49 09/02/2009/02/2023 COMPR EHENS BERNADETTE METAB OLIC PANEL potassium 4.7 mmol/ L 3.5-5. 1 Not Available [facility] (Lab) [address] [place], [address], 09/02/2023 15:55:49 09/02/2009/02/2023 COMPR EHENS BERNADETTE METAB OLIC PANEL chloride 104 mmol/ L 98-107 Not Available [facility] (Lab) [address] [place], [address], 09/02/2023 15:55:49 09/02/2009/02/2023 COMPR EHENS BERNADETTE METAB OLIC PANEL carbon dioxide 29 mmol/ L 22-30 Not Available [facility] (Lab) [address] [place], [address], 09/02/2023 15:55:49 09/02/20 23 09/02/2023 COMPR EHENS BERNADETTE METAB OLIC PANEL anion gap 9.7 mmol/ L 14-22 low Not Available [facility] (Lab) [address] [place], [address], 09/02/2023 15:55:49 09/02/2009/02/2023 COMPR EHENS BERNADETTE METAB OLIC PANEL glucose 87 mg/dL 70-99 Not Available [facility] (Lab) [address] [place], [address], 09/02/2023 15:55:49 09/02/2009/02/2023 COMPR EHENS BERNADETTE METAB OLIC PANEL BUN 22 mg/dL 8-19 high Not Available [facility] (Lab) [address] [place], [address], 09/02/2023 15:55:49 09/02/2009/02/2023 COMPR EHENS BERNADETTE METAB OLIC PANEL creatinine 0.83 mg/dL 0.66-1 .25 Not Available [facility] (Lab) [address] [place], [address], 09/02/2023 15:55:49 09/02/2009/02/2023 COMPR EHENS BERNADETTE METAB OLIC PANEL GFR >60 Refer ence Range : [place] ge GFR Healt hy Adult : >60 mL/mi n/1.7 3 m2 Chron ic Kidne y Disea se: 15-60 mL/mi n/1.7 3 m2 Kidne y Failu re: <15/m L/min /1.73 m2 www.n iddk. nih.g ov The MDRD study equat ion has not been valid ated in child jenny <18 years of age; pregn ant women ; the elder ly >85 years of age; or in some racia l or ethni c subgr oups, such as Hispa nics. Outsi de the valid ated luli eters , estim ated GFR is less accur ate, requi ring clini trudi judgm ent on a case- by-ca se basis . Clini trudi inter preta tion for other races and ages must be made by the clini javid. The MDRD study equat ion has not been valid ated for the evalu ation of serum creat inine relat ed to nutri mouna l statu s or medic ation usage . For perso ns <18 years of age, a pedia tric GFR calcu lator is avail able on the [facility] websi te: https ://ww w.kid ke.o rg/pr ofess ional s/kdo qi/gf r_cal culat or Not Available [facility] (Lab) [address] [place], [address], 09/02/2023 15:55:49 09/02/2009/02/2023 COMPR EHENS BERNADETTE METAB OLIC PANEL alkaline phosphatase 61 U/L 38-126 Not Available [facility] (Lab) [address] [place], [address], 09/02/2023 15:55:49 09/02/2009/02/2023 COMPR EHENS BERNADETTE METAB OLIC PANEL alanine aminotransfe rase 21 U/L 0-35 Not Available [facility] (Lab) [address] [place], [address], 09/02/2023 15:55:49 09/02/2009/02/2023 COMPR EHENS BERNADETTE METAB OLIC PANEL aspartate aminotransfe rase 26 U/L 15-37 Not Available [facility] (Lab) [address] [place], [address], 09/02/2023 15:55:49 09/02/2009/02/2023 COMPR EHENS BERNADETTE METAB OLIC PANEL bilirubin, total 0.40 mg/dL 0.20-1 .30 Not Available [facility] (Lab) [address] [place], [address], 09/02/2023 15:55:49 09/02/2009/02/2023 COMPR EHENS BERNADETTE METAB OLIC PANEL calcium 10.0 mg/dL 8.4-10 .2 Not Available [facility] (Lab) [address] [place], [address], 09/02/2023 15:55:49 09/02/2009/02/2023 COMPR EHENS BERNADETTE METAB OLIC PANEL total protein 6.4 g/dL 6.3-8. 2 Not Available [facility] (Lab) [address] [place], [address], 09/02/2023 15:55:49 09/02/2009/02/2023 COMPR EHENS BERNADETTE METAB OLIC PANEL albumin 4.0 g/dL 3.4-5. 0 Not Available [facility] (Lab) [address] [place], [address], 09/02/2023 15:55:49 09/02/2009/02/2023 COMPR EHENS BERNADETTE METAB OLIC PANEL globulin 2.4 g/dL 2.6-4. 2 low Not Available [facility] (Lab) [address] [place], [address], 09/02/2023 15:55:49 09/02/2009/02/2023 COMPR EHENS BERNADETTE METAB OLIC PANEL A/G ratio 1.7 ratio 1.0-2. 0 Not Available [facility] (Lab) [address] [place], [address], 09/02/2023 15:55:49 09/02/2009/02/2023 TSH W/REF MURIEL FT4 TSH with reflex free T4 4.560 uIU/m L 0.465- 4.680 Not Available [facility] (Lab) [address] [place], [address], 09/02/2023 15:39:35 10/02/2010/07/2023 ADH/A NTIDI URETI C HORMO NE adh 1.0 pg/mL 0.0-4. 7 Test( s) 45288 9-ADH This test was devel oped and its perfo rmanc e kathryn cteri stics deter mined by [facility]. It has not been clear ed or appro deepali by the Food and Drug Admin istra tion. Perfo rmed at: [facility] [place] [address] [facility] , [place] [address] Lab Direc tor: Ivone gray MD, Phone : [phone] Not Available [facility] (Lab) [address] [facility], [place], [address], 10/07/2023 14:11:57 11/18/19 23 11/18/2022 MAMMO , scree terrance, bilat eral No observ ation record ed. [id number], [place], [address], 01/14/2023 22:08:28 10/26/[address], head, w/o contr ast [facility] [address] [place] [address] [phone] Patien t Name: MISSY PATTERSON Access ion #: [id number] Sex: F : 1959 2 1 Dictat ed By: Hermelindo moya Attend ing Physic kaleb: , Elena anand Physic kaleb: RIGOBERTO CASTILLO Exam Date: 2022 08:08 AM Exam Name: CT HEAD WO Admitt ing Diagno sis(es ): STUDY: CT BRAIN WITHOU T CONTRA ST HISTOR Y: Headac he and numbne ss all over the face. TECHNI QUE: Axial CT scan of the brain was perfor med withou t admini strati on of intrav enous contra st. Sagitt al and patel l recons tructi ons were obtain ed. Radiat ion dose reduct ion was achiev ed using ALARA (as low as reason ably achiev able) princi pals includ ing automa tic exposu re contro l, adjust ing the mA and/or KV settin g accord ing to patien t's size and weight , the use of iterat bernadette recons tructi on techni ques as well as perfor cesar sagitt al and patel l recons tructi on images when applic able. FINDIN GS: The visual ized brain parenc hyma shows normal appear ance. Walsh-w qamar matter differ entiat ion is mainta ined. The brains tem, the cerebe llum is unrema rkable . The pituit jigar gland, the pineal gland, the optic chiasm are unrema rkable . Focal areas of hypode nsitie s in the bilate ral perive ntricu lar and subcor tical white matter most likely repres ent small vessel ischem ic diseas e. Promin ence of the sulcal spaces , basal cister ns, min n fissur es and the ventri cular system is consis tent with patien ts age. The midlin e struct ures are not deviat ed. The ventri cular system is normal in size and shape. The cerebe llo-po ntine angles are clear. The IACs are unrema rkable . The visual ised parana black sinuse s are normal . The osseou s struct ures in the skull base are unrema rkable . The osseou s struct ures in the calvar ium show normal densit y. IMPRES DENYS: 1. No signif icant abnorm ality detect ed in the brain parenc hyma. No eviden ce Page 1 [facility] [address] [facility] [place] [address] Patien t Name: MISSY PATTERSON Access ion #: [id number] Sex: F : 1959 2 1 Dictat ed By: Hermelindo moya Attend ing Physic kaleb: Elena Physic kaleb: RIGOBERTO CASTILLO Exam Date: 2022 08:08 AM Exam Name: CT HEAD WO Admitt ing Diagno sis(es ): of infarc t, mass or hemorr jasmin seen. 2. Small vessel ischem ic diseas e in the bilate ral perive ntricu lar and subcor tical white matter . 3. Age-ap propri ate genera lized brain atroph y. Electr onical ly Signed by: Hermelindo moya at 2022 09:00: 50 AM Signat ure Date/T christian: 2022 9:00 AM Page 2 [email or web address] [facility] (Imaging) [address] [place], [address], 10/30/2023 11:17:26 10/26/20 23 10/26/2023 CT, head, w/o contr ast No observ ation record ed. [facility] [address] [place] [address] , [place], [address], 11/25/2023 12:43:44 12/01/19 24 12/01/2023 US, duple x, arter ial, lower extre mity No observ ation record ed. [email or web address] [facility] [address] [place], [address], 12/14/2023 12:33:17 03/29/20 24 03/29/2024 XR, cervi trudi spine , 2 or 3 view No observ ation record ed. [email or web address] [facility] [address] [place], [address], 03/29/2024 12:57:24 03/29/20 24 03/29/2024 XR, cervi trudi spine , 2 or 3 view No observ ation record ed. [email or web address] [address] , [place], [address], 03/29/2024 12:48:56 04/13/20 24 04/12/2024 MAMMO , scree terrance, digit al, bilat eral No observ ation record ed. [email or web address] [place] [address], [place], [address], 04/14/2024 13:42:21 04/13/20 24 04/12/2024 MAMMO , scree terrance, digit al, bilat eral No observ ation record ed. [email or web address] [facility] [address], [place], [address], 04/14/2024 12:45:03 11/03/20 24 11/02/2024 MRI, brain , w/wo contr ast No observ ation record ed. [address], [address], 11/03/2024 09:04:56 11/03/2011/02/2024 MR, angio gram, head + neck, w/o contr ast No observ ation record ed. [address], [address], 11/03/2024 09:06:05 11/03/20 24 11/02/2024 MR, angio gram, brain , w/ contr ast No observ ation record ed. [address], [address], 11/03/2024 09:07:12 11/03/20 24 11/02/2024 MRI, cervi trudi spine , w/wo contr ast No observ ation record ed. [address], [address], 11/03/2024 09:08:32 11/03/20 24 11/02/2024 elect roenc ephal ogram No observ ation record ed. [email or web address] Not Available 2023 13:59:41 Result Notes None recorded. Problems Name Problem SNOMED Code Status Onset Date Resolution Date Notes Provider Name and Address Organization Details Recorded Time Menopausal and postmenopa usal disorders 958575514 Active 2019 Not Available [facility] 3 06:19:49 Ingrowing nail 907582476 Active 2021 Not Available [facility] 3 06:19:49 Hypothyroi dism 01809167 Active 2004 Not Available [facility] 3 06:19:49 Colorectal cancer detected by DNA-based stool screening 782739747 Active 2021 Not Available [facility] 3 06:19:49 Dystrophia unguium 05889712 Active 2021 Not Available [facility] 3 06:19:49 Hyperlipid emia 14165932 Active 2022 Not Available [facility] 3 06:19:49 Pain in both feet 0835342615304 9102 Active 2022 Not Available [facility] 3 06:19:49 Tension-ty pe headache 578083977 Active 2022 Not Available [facility] 3 06:19:49 Increased thirst 965157252 Active 2022 Not Available [employer] 3 06:19:49 Numbness of face 076782485 Active 2022 Not Available [employer] 3 06:19:49 Diabetes insipidus 68826204 Active 2022 Not Available [employer] 3 06:19:49 Small vessel cerebrovas cular disease 903400862 Active 2022 Not Available [employer] 3 06:19:49 Mood swings 36710526 Active 2023 TYLER Sparks [address], [place], [address] , [employer] [facility] [employer] 4 15:53:35 Non-menopa usal hot flash 7391388729796 09 Active 2023 TYLER Sparks [address], [place], [address] , [employer] S [facility] 4 15:54:44 Amenorrhea 47364736 Active 2023 TYLER Sparks [address], [place], [address] , [employer] 4 15:55:08 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 Procedures Surgical History Date Name Laterality Status Provider Name and Address Organization Details Recorded Time 08/14/20 21 screening mammography completed Not Available [facility] 01/14/2023 22:06:20 Endometrial cryoablation completed Not Available [facility] 01/14/2023 22:06:20 Imaging Results Imaging Date Name Status LastModified by Organization Details LastModified Time 11/18/2022 MAMMO, screening, bilateral completed [id number], [place], [address], 01/14/2023 22:08:28 10/26/2023 CT, head, w/o contrast completed [email or web address] [facility] (Imaging) [address] [place], [address], 10/30/2023 11:17:26 10/26/2023 CT, head, w/o contrast completed [facility] [address] [place] [address] , [place], [address], 11/25/2023 12:43:44 12/01/2023 US, duplex, arterial , lower extremity completed [id number] [place] [address] [address] [place], [address], 12/14/2023 12:33:17 03/29/2024 XR, cervical spine, 2 or 3 view completed [address] [facility], [place], [address], 03/29/2024 12:57:24 03/29/2024 XR, cervical spine, 2 or 3 view completed [address] [place] [address], [place], [address], 03/29/2024 12:48:56 04/12/2024 MAMMO, screening, digital, bilateral completed [address], [address], 04/14/2024 13:42:21 04/12/2024 MAMMO, screening, digital, bilateral completed [address], [address], 04/14/2024 12:45:03 11/02/2024 MRI, brain, w/wo contrast completed [address], [address], 11/03/2024 09:04:56 11/02/2024 MR, angiogram, head + neck, w/o contrast completed [address], [address], 11/03/2024 09:06:05 11/02/2024 MR, angiogram, brain , w/ contrast completed [address], [address], 11/03/2024 09:07:12 11/02/2024 MRI, cervical spine, w/wo contrast completed [address], [address], 11/03/2024 09:08:32 11/02/2024 electroencephalogram completed [email or web address] Info rmation not available 11/03/2024 13:59:41 Procedure Notes None recorded. Medical Equipment None Reported. Allergies No known drug allergies Medications Name Sig Start Date Stop Date Status Note LastModified by Organization Details LastModified Time atorvasta tin 20 mg tablet TAKE 1 TABLET BY MOUTH EVERY DAY DIRECTED active Not Available Not Available No t Available levothyro xine 75 mcg tablet TAKE 1 TABLET BY MOUTH EVERY DAY active Not Available Not Available No t Available terbinafi ne HCl 250 mg tablet TAKE 1 TABLET BY MOUTH EVERY DAY active Not Available Not Available No t Available levothyro xine 50 mcg tablet TAKE 1 TABLET BY MOUTH EVERY MORNING 09/08 completed Not Available Not Available Not Available mupirocin 2 % topical ointment APPLY A SMALL AMOUNT TO THE AFFECTED AREA BY TOPICAL daily active Not Available Not Available No t Available naproxen 500 mg tablet TAKE 1 TABLET BY MOUTH TWICE DAILY NEEDED active Not Available Not Available No t Available Prempro 0.3 mg-1.5 mg tablet Take 1 tablet every other day by oral route. 09/01 completed FOR MENAPAUS E Not Available Not Available Not Available Vitamin D3 1 PO EVERY DAY 2019 active OTC Not Available Not Available Not Avai lable multivita min 2021 active Not Available Not Available Not Avai lable Flucelvax Quad (PF) 60 mcg (15 mcg x 4)/0.5 mL IM syringe ADM 0.5ML IM UTD 07/08 completed Not Available Not Available Not Available Ubrelvy 100 mg tablet active Not Available Not Available Not Available ID NOW COVID-19 Test Kit TEST DIRECTED 07/08 completed Not Available Not Available Not Available BinaxNOW COVID-19 Ag Self Test kit Use as Directed on the Package 03/22 completed Not Available Not Available Not Available Zepbound 2.5 mg/0.5 mL subcutane ous pen injector active Not Available Not Available Not Available Vitals Date Recorded Body mass index (BMI) Body height Body weight Provider Name and Address Organization Details Last Updated DateTime 08/28/2022 30.7 kg/m2 172.72 cm 58823.66 g Not Available [facility] 01/14/2023 22:06:51 Date Recorded Body mass index (BMI) Body height Oxygen saturation Oxygen saturation in Arterial blood by Pulse oximetry Heart rate Body temperature Body weight Systolic blood pressure Diastolic blood pressure Provider Name and Address Organization Details Last Updated DateTime 2 31.5 kg/m2 172.72 cm 96 % 96 % 77 /min 97.4 [degF] 59021.6 2 g 122 mm[Hg] 80 mm[Hg] Not Available [facility] 3 22:06:50 Date Recorded Body weight Body mass index (BMI) Body height Heart rate Oxygen saturation Oxygen saturation in Arterial blood by Pulse oximetry Body temperature Systolic blood pressure Diastolic blood pressure Provider Name and Address Organization Details Last Updated DateTime 3 02791.0 7 g 30.6 kg/m2 172.72 cm 83 /min 98 % 98 % 97.6 [degF] 124 mm[Hg] 80 mm[Hg] Aiyana Styles MA [place] [employer] 3 09:14:05 Date Recorded Body height Body mass index (BMI) Body weight Body temperature Heart rate Oxygen saturation Oxygen saturation in Arterial blood by Pulse oximetry Systolic blood pressure Diastolic blood pressure Provider Name and Address Organization Details Last Updated DateTime 3 172.72 cm 31.5 kg/m2 62152.6 2 g 97 [degF] 65 /min 99 % 99 % 118 mm[Hg] 84 mm[Hg] Aiyana Styles MA [place] [employer] 3 12:46:16 Date Recorded Body height Body mass index (BMI) Body weight Body temperature Heart rate Oxygen saturation Oxygen saturation in Arterial blood by Pulse oximetry Systolic blood pressure Diastolic blood pressure Provider Name and Address Organization Details Last Updated DateTime 4 172.72 cm 30.6 kg/m2 69016.0 7 g 97.1 [degF] 68 /min 98 % 98 % 143 mm[Hg] 93 mm[Hg] Dee Tapia MA [place] [employer] [facility] 4 15:31:46 Social History Question Answer Notes LastModified by Organizat ion Details LastModified Time Tobacco Smoking Status Never Smoker Not Available [facility] 01/14/2023 22:06:18 In The 14 Days Before Symptom Onset, Have You Had Close Contact With A Laboratory-confirm ed COVID-19 While That Case Was Ill? No [id number] Information not available 01/14/2023 In The 14 Days Before Symptom Onset, Have You Had Close Contact With A Person Who Is Under Investigation For COVID-19 While That Person Was Ill? No [id number] Information not available 01/14/2023 Have You Recently Traveled Abroad? No [id number] Information not available 01/14/2023 Sex: Unknown Functional Status None recorded. Mental Status None recorded. Family History Relationship Description Onset Age of this Age Resolved Age Notes LastModified by Organization Details LastModified Time Paternal Aunt Family history of malignant neoplasm [email or web address] Not available 03/22 15:15:10 Paternal Uncle Family history of malignant neoplasm [email or web address] Not available 03/22 15:15:10 Father Dementia [email or web address] Not availab le 03/22/2024 15:15:10 Mother Myocardial infarction [id number] Not available 01/14/2023 22:06:21 Medical History Condition Response BLINDNESS N RHEUMATIC FEVER N BLADDER PROBLEMS N KIDNEY STONES N MRSA N OTHER # 1 N POLIO N LUNG DISEASE/DISORDER N HISTORY OF DRUG ABUSE N RADIATION / CHEMOTHERAPY N COPD N Other # 2 N BLOOD DISEASES N SURGERY N EAR OR HEARING PROBLEMS N MUMPS N SHINGLES N DEPRESSION (INCLUDING POST ) N FEMALE PROBLEMS / INFECTIONS N BOWEL PROBLEMS N STROKE/TIA N THYROID DISEASE N ULCERS N BENIGN PROSTATIC HYPERPLASIA N MEASLES N CERVICALGIA N HYPOTENSION N TB SKIN TEST N MYOCARDIAL INFARCTION N PARAPELGIA N OBESITY N GERD/NAUSEA N ANEURYSM N URINARY/BLADDER/KIDNEY PROBLEMS N CORONARY ARTERY DISEASE (CAD) N MENIERE'S DISEASE N ADDICTION CONCERNS N ENDOMETRIOSIS N USE OF BLOOD THINNERS N SKIN PROBLEMS N EMPHYSEMA N GASTROINTESTINAL DISORDER N MUSCLE,JOINT OR BONE PROBLEMS N GASTROINTESTINAL BLEEDING N BLOOD CLOTS N ASTHMA N CATARACTS N ERECTILE DYSFUNCTION N GI PROBLEMS N CHF N Low Testosterone N NEUROPATHY N INFERTILITY N AIDS/HIV N FRACTURES N CHEMOTHERAPY / RADIATION N VISION/EYE PROBLEMS N LIVER DISEASE N MALE HYPOGONADISM N HYPERTENSION N TOURETTE'S N ANXIETY DISORDER N BLOOD TRANSFUSION N ANEMIA/BLOOD DISORDER N CHRONIC EAR INFECTIONS N BRONCHITIS N TUBERCULOSIS N GLAUCOMA N FOOT PROBLEM N DIVERTICULITIS N CHICKENPOX N SLEEP APNEA N ALLERGIES/HAYFEVER N INFECTIOUS DISEASE N HEART ARRHYTHMIA N PROSTATE N INSOMNIA N HIGH CHOLESTEROL / HYPERLIPIDEMIA N HYPERTHYROIDISM N EYE PROBLEMS N EATING DISORDER N EDEMA N CHRONIC PAIN SYNDROME N CONSTIPATION N CAROTID BLOCKAGE N BACK / NECK PROBLEMS N HAVE YOU BEEN HOSPITALIZED OR SEEN IN [facility] IN THE PAST YEAR ? N ATHEROSCLEROSIS N BREAST PROBLEMS N DIALYSIS N ECZEMA N FIBROMYALGIA N OSTEOPOROSIS N ARTHRITIS N NO SIGNIFICANT PAST MEDICAL HISTORY N APPENDICITIS N DIABETES, TYPE N BAD TEETH N HEARTBURN / REFLUX N ADD/ADHD N AUTISM SPECTRUM DISORDER (ASD) N HEPATITIS / LIVER DISEASE N PULMONARY DISEASE N GOUT N SLEEP DISORDER N ALZHEIMER'S DISEASE N PAIN N HERPES N DEMENTIA N HEADACHES/MIGRAINES N SEIZURES/EPILEPSY N VASCULAR DISEASE N PACEMAKER N DIZZINESS N HEART DISEASE/HEART PROBLEMS N KIDNEY DISEASE N DEVELOPMENTAL OR BEHAVIORAL DISORDERS N MULTIPLE SCLEROSIS N SCARLET FEVER N MENTAL DISORDER/ILLNESS N CARDIAC ARRHYTHMIA N CANCER: SPECIFY N PNEUMONIA N ATRIAL FIBRILLATION N Gall Stones N PULMONARY EMBOLISM N AUTOIMMUNE DISEASE N Gynecological HistoryNo gynecological history recorded. Obstetrics History GPAL:G 0 P 0 0 0 0 Immunizations Vaccine Type Date Status Note Provider Nam e and Address Organization Details Recorded Time zoster, unspecified formulation 0 completed TYLER Sparks [address], [address], [place], [address], [employer] 03/22/2024 16:08:19 influenza, unspecified formulation 0 completed TYLER Sparks [address], [address], [place], [address], [employer] 03/22/2024 16:08:19 Influenza, split virus, quadrivalent, preservative 9 completed Not Available [facility] 10/31/2023 06:19:49 Tdap 9 completed TYLER Sparks [address], [address], [place], [address], [employer] 03/22/2024 16:08:19 Influenza, split virus, quadrivalent, preservative 2 completed TYLER Sparks [address], [address], [place], [address], [employer] 03/22/2024 16:08:18 COVID-19, mRNA, LNP-S, bivalent, PF, 50 mcg/0.5 mL or 25mcg/0.25 mL dose 2 completed TYLER pSarks [address], [address], [place], [address], [facility] [employer] [facility] 03/22/2024 16:08:19 Influenza, MDCK, quadrivalent, PF 0 completed TYLER Sparks [address], [place], [address], [facility] [employer] [facility] [employer] [facility] 03/22/2024 16:08:18 Influenza, MDCK, quadrivalent, PF 3 completed TYLER Sparks [address], [address], [place], [address], [facility] [employer] [facility] 03/22/2024 16:08:18 Influenza, MDCK, quadrivalent, PF 2 completed TYLER Sparks [address], [place], [address], [facility] [employer] [facility] 03/22/2024 16:08:19 zoster recombinant 0 completed TYLER Sparks [address], [place], [address], [facility] [employer] [facility] 03/22/2024 16:08:19 zoster recombinant 0 completed TYLER Sparks [address], [place], [address], [facility] [employer] [facility] [employer] [facility] 03/22/2024 16:08:19 Influenza, live, trivalent, intranasal 0 completed TYLER Sparks [address], [address], [place], [address], [facility] [employer] [facility] 03/22/2024 16:08:19 COVID-19, mRNA, LNP-S, PF, 100 mcg/0.5mL dose or 50 mcg/0.25mL dose 1 completed Oxbow Thilker, [employer] [address], [place], [address], [facility] 03/22/2024 16:08:19 COVID-19, mRNA, LNP-S, PF, 100 mcg/0.5mL dose or 50 mcg/0.25mL dose 1 [address] Sparks [address], [place], [address], [facility] 03/22/2024 16:08:19 COVID-19, mRNA, LNP-S, PF, 100 mcg/0.5mL dose or 50 mcg/0.25mL dose 2 [address] Sparks [address], [place], [address], [facility] 03/22/2024 16:08:19 COVID-19, mRNA, LNP-S, PF, 100 mcg/0.5mL dose or 50 mcg/0.25mL dose 1 completed TYLER Sparks [address], [place], [address], [facility] [employer] [facility] 03/22/2024 16:08:19 Tdap 9 completed [address] Sparks [address], [place], [address], [facility] 03/22/2024 16:08:19 Tdap 8 completed TYLER Sparks [address], [place], [address], [facility] [employer] [facility] 03/22/2024 16:08:19 zoster live 4 completed TYLER Sparks [address], [place], [address], [facility] 03/22/2024 16:08:19 Influenza, split virus, trivalent, PF 3 completed Oxbow Thilker, SH[employer] ST[employer] [address], [place], [address], [employer] [facility] 03/22/2024 16:08:19 Td (adult), 5 Lf tetanus toxoid, preservative free, adsorbed 0 completed TYLER Sparks [address], [place], [address], [employer] [facility] 03/22/2024 16:08:19 Td (adult), 5 Lf tetanus toxoid, preservative free, adsorbed 5 completed TYLER Sparks [address], [place], [address], [employer] [facility] 03/22/2024 16:08:19 Influenza, split virus, quadrivalent, PF 1 completed TYLER Sparks [address], [place], [address], [employer] [facility] 03/22/2024 16:08:19 Influenza, split virus, quadrivalent, PF 8 completed TYLER Sparks [address], [place], [address], [employer] [facility] 03/22/2024 16:08:19 Influenza, split virus, quadrivalent, PF 0 completed TYLER Sparks [address], [place], [address], [employer] [facility] 03/22/2024 16:08:19 Influenza, split virus, quadrivalent, PF 5 completed TYLER Sparks [address], [place], [address], [employer] 03/22/2024 16:08:19 Past Encounters Encounter ID Performer Location Encounter Start Date Encounter Closed Date Diagnosis/Indication Diagnosis SNOMED-CT Code Diagnosis ICD10 Code Diagnosis Note [id number] Rigoberto Nash MD [facility] [place] [address] [facility] [place] [address] 07/08/2021 00:00:00 07/08/2021 21:35:43 [id number] Rigoberto Nash MD [facility] [place] [address] [place] [address] 10/31/2021 00:00:00 10/31/2021 21:19:17 [id number] [facility] [place] [address] [place] [address] 11/18/2021 00:00:00 11/18/2021 14:48:44 [id number] [facility] _ATHENA_M IGRATION_ DEFAULT_1 _1 , 11/29/2021 00:00:00 12/02/2021 09:47:21 [id number] [facility] [place] [address] [place] [address] 12/12/2021 00:00:00 12/15/2021 15:07:12 [id number] [facility] [place] [address] [place] [address] 08/28/2022 00:00:00 08/28/2022 16:57:26 [id number] Rigoberto Nash MD [facility] [place] [facility] [place] [address] 09/01/2022 00:00:00 09/01/2022 19:59:49 [id number] Rigoberto Nash MD [facility] [place] [facility] [place] [address] 09/02/2023 09:02:44 09/02/2023 09:33:40 Adult health examination 150595812 Z00.00 Hyperlipidemia 54709694 E78.5 Hypothyroidism 40318391 E03.9 Screening for malignant neoplasm of colon 318405402 Z12.11 Pain in both feet 845395 8809 1245255 M79.263 [id number] Rigoberto Nash MD [facility] [address] [place] [address] 10/02/2023 12:24:35 10/02/2023 13:31:48 Tension-type headache 405658230 G44.209 Suggest seeing a chiropract or. Increased thirst 2601114 03 R63.1 Will check ADH Numbness of face 4518944 09 R20.0 Diabetes insipidus 35338 004 E23.2 ??? [id number] Honorio Alonzo MD [address] [place] [address] 03/22/2024 15:13:53 03/22/2024 17:33:11 Non-menopausal hot flash 8922469639 66149 R23.2 Polyarthropathy 62427805 M13.0 Numbness of face 5314952 09 R20.0 Pain in both feet 397506 4252 0265989 M79.671 Health Concerns Section Related Observation LastModified by Organization Detai ls LastModified Time None Recorded Concern Status LastModified by Organization Details LastModified Time None Recorded Advance Directives Directive None Recorded Payers Encounter Date Sequence Insurance Name Policy Number Policy Brennan Covered Member ID Brennan Member ID Guarantor Name 09/02/2023 1 [employer] Missy Massa [id number] OI Missy Massa 10/02/2023 1 [employer] Missy Massa [id number] OI Missy Massa 03/22/2024 1 [employer] Missy Massa [id number] OI Missy Massa Notes Date Note Type Note Provider Name and Address Organization Details Recorded Time 09/02/2023 text/html Here today for a n annual physical. Her cologuard was positive and needs colonoscopy. Needs BW. Had mammogram in 12/08 and will need it in 12/09.Her feet hurt all the time and needs to see molecular genetic pathologist. No other issues or complaints. working on losing weight and is coming off slow. Rigoberto Nash MD [address], [place], [address], [employer] 09/02/2023 09:39:54 10/02/2023 text/html Here today c/o facial numbness on both sides that comes and goes. It has been going on x a couple of weeks.Has pain in the back of head.Feels like is always dehydrated. Can not get enough water. Had BW in 09/07 and was a little dehydrated. No DM2 Runda MD Charity [address], [place], [address], [employer] 10/03/2023 10:47:41 03/22/2024 text/html Missy Patterson is a 63 year old female patient here to transition care. She was previously under the care of Dr. Nash. She has concerns today with pain on the cervical spine. She feels that this is connected with numbness to her face. She has a family history of cardiac issues. She went to a secretary administrative assistant, they did stress tests, EKGs, and plan to do a carotid doppler. She recently has started having hot flashes again. She states that these come on with a feeling of dizziness/nausea. some days these are more intense than others. She has hypothyroidism. This was diagnosed in 2019. Her last TSH (09/02/2023) was WNLs. She is currently taking levothyroxine 75 mcg PO daily. She has a history of hyperlipidemia. Her last lipid panel (09/02/2023) her total cholesterol 254. She is taking atorvastatin She has been on different hormonal therapies. She has struggled with mood in the past. She has a history of endometriosis. She had one portion of one ovary removed. Flu Shot: OVID vaccines: 01/2021, 02/2021, 09/2021, 05/2022, 08/2022Tdap: 12/2018Shingles: 07/2014, 06/2020, 09/2020positive cologuard 09/15/2022, follow-up colonoscopy 09/02/2023 was clear TYLER Sparks [address], [place], [address], [employer] 03/29/2024 17:03:54 OBGyn Episode No OBEpisode recorded.
--- OUTSIDE RECORDS SUMMARY | 2025-03-22 10:34 | XMS_ITS | Clinical Summary ---
Author Organization [facility] [employer] Address [address] [place] [address] Care Team Providers Care Clam Bed Worker Name Role Phone Unavailable Primary Care Provider Unavailabl e Source Comments [facility] [employer],non-owned Affiliates and Associated Physician Practices is amultiple site organization consisting of ambulatory clinics and hospital sitesin [place], [place], [place] and [place]. This disclosure is being madepursuant to the Care Everywhere program and may not contain all information available regarding this patient. Last updated 18.[facility] [employer] Allergies No known active allergies Medications * Be aware that medications may not be up to date on this document. Alwaysverify current medications with the patient. levothyroxine (SYNTHROID) 50 MCG tablet Take 50 mcg by mouth daily before breakfast. Active Other control medication Active Family History Medical History Relation Name Comments CAD (Coronary Artery Disease) Maternal Grandfather CAD (Coronary Artery Disease) Maternal Grandmother Diabetes Paternal Grandmother Relation Name Status Comments Maternal Grandfather Maternal Grandmother Paternal Grandmother Social History Tobacco Use Types Packs/Day Years Used Date Smoking Tobacco: Never Smokeless Tobacco: Never Alcohol Use Standard Drinks/Week Comments Yes 0.4 (1 standard drink = 0.6 oz p ure alcohol) Comments Unknown Sex and Gender Information Value Date Recorded Sex Assigned at Not on file Legal 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 Gender Identity Not on file Sexual Orientation Not on file Last Filed Vital Signs Vital Sign Reading Time Taken Comments Blood Pressure 136/92 06/05/2014 1:47 PM CDT Pulse 79 06/05/2014 1:46 PM CDT Temperature - - Respiratory Rate - - Oxygen Saturation 99% 06/05/2014 1:46 PM CDT Inhaled Oxygen Concentration - - Weight 99.8 kg (220 lb) 06/05/2014 12:47 PM CDT Height 175.3 cm (5' 9 ) 06/05/2014 12:47 PM CDT Body Mass Index 32.49 06/05/2014 12:47 PM CDT Plan of Treatment Health Maintenance Due Date Last Done Comments COLOGUARD (AGES 45-75) - COL ON CA SCREENING 1960 CT COLONOGRAPHY - COLON CA SCREENING 1960 FIT - COLON CA SCREENING 1960 FLEX SIG - COLON CA SCREENING 1960 LIPID TESTING 1960 MAMMOGRAM 1960 HIV SCREENING 1977 HEPATITIS C SCREENING 06/13/1980 DTAP/TDAP/TD VACCINES (1 - Tdap) 1981 PNEUMOCOCCAL VACCINE 50+ (1 of 1 - PCV) 2012 ZOSTER VACCINE (1 of 2) 2012 COLON MONITORING 06/05/2024 06/05/2014, 06/05/2014 COLONOSCOPY - COLON CA SCREENING 06/05/2024 06/05/2014, 06/05/2014 Colorectal Cancer Screening 06/05/2024 COVID-19 VACCINE (1 - 2023-2 5 season) 2024 DEPRESSION SCREENING 11/16/2024 INFLUENZA VACCINE (Season Ended) 2025 Respiratory Syncytial Virus (RSV) Vaccine Pt: or over 60 yrs (1 - 1-dose 75+ series) 2037 HEPATITIS B VACCINE Aged Out No longe r eligible based on patient's age to complete this topic HIB VACCINE Aged Out No longer eligi ble based on patient's age to complete this topic HPV VACCINE Aged Out No longer eligi ble based on patient's age to complete this topic MENINGOCOCCAL (Group B) VACCINE SHARED DECISION-MAKING Aged Out No longer eligible based on patient's age to complete this topic MENINGOCOCCAL GROUPS A/C/Y/W VACCINE Aged Out No longer eligible b ased on patient's age to complete this topic Procedures Procedure Name Priority Date/Time Associated Diagnosis Comments ENDOSCOPY, COLON, SCREENING Routine 06/05/2014 12:55 PM CDT from Last 3 Months or Most Recently Relevant to Health Maintenance Results * ENDOSCOPY, COLON, SCREENING (06/05/2014 12:55 PM CDT) Report Endoscopy POC _ Patient Name: Missy Anton Procedure Date: 06/05/2014 12:55 PM Date of : 1960 Admit Type: Outpatient Age: 53 Gender: Female Attending MD: Toy Sinha MD _ Procedure: Colonoscopy Indications: Screening for colorectal malignant neoplasm Providers: Toy Sinha MD (Doctor), Aurelia Maradiaga RN Medicines: Monitored Anesthesia Care Complications: No immediate complications. _ Procedure: Pre-Anesthesia Assessment: - ASA Grade Assessment: II - A patient with mild systemic disease. - Airway Examination: Mallampati Class I (tonsillar pillars visualized). After I obtained informed consent, the scope was passed under direct vision. Throughout the procedure, the patient's blood pressure, pulse, and oxygen saturations were monitored continuously. The Colonoscope was introduced through the anus and advanced to the cecum, identified by appendiceal orifice and ileocecal valve. The colonoscopy was performed without difficulty. The patient tolerated the procedure well. The quality of the bowel preparation was fair. Impression: - The entire examined colon is normal. Findings: The colon (entire examined portion) appeared normal. _ Recommendation: - Repeat colonoscopy in 10 years for screening purposes. - Repeat colonoscopy sooner in the event of new symptoms ie: bleeding, weight loss or change in bowel habits etc, or if a family member (mother, father, sister, brother) is diagnosed with polyps or colon cancer. Procedure Code(s): --- Professional --- 12973, Colonoscopy, flexible, proximal to splenic flexure; diagnostic, with or without collection of specimen(s) by brushing or washing, with or without colon decompression (separate procedure) --- Technical --- 67956, Colonoscopy, flexible, proximal to splenic flexure; diagnostic, with or without collection of specimen(s) by brushing or washing, with or without colon decompression (separate procedure) Diagnosis Code(s): --- Professional --- V76.51, Special screening for malignant neoplasms of colon --- Technical --- V76.51, Special screening for malignant neoplasms of colon CPT copyright 2013 [employer]. All rights reserved. The codes documented in this report are preliminary and upon canoe inspector final review may be revised to meet current compliance requirements. Toy Sinha MD 06/05/2014 1:18 PM This report has been signed electronically. Number of Addenda: 0 Note Initiated On: 06/05/2014 12:55 PM [facility] ENDOSCOPY 06/05/2014 12:5 5 PM CDT us Toy Sinha MD GI PROCEDURE ORDERABLES Edited R esult - Final [facility] ENDOSCOPY from Last 3 Months or Most Recently Relevant to Health Maintenance Insurance [employer]
--- NOTE | 2025-03-22 11:15 | NEURO_ITS ---
Impression: # Complains of feet pain. Non-diabetic. ? # Normal motor/sensory Nerve Conduction Study. ? # Normal needle/EMG exam. Nerve Conduction Studies Anti Sensory Summary Table ?Stim Site NR Peak (ms) P-T Amp (?V) Site1 Site2 Delta-P (ms) Dist (cm) Rk (m/s) Left Sup Fibular Anti Sensory (Ant Lat Mall) 14 cm ? 3.6 5.1 14 cm Ant Lat Mall 3.6 16.0 44 Right Sup Fibular Anti Sensory (Ant Lat Mall) 14 cm ? 3.4 7.2 14 cm Ant Lat Mall 3.4 16.0 47 Left Sural Anti Sensory (Lat Mall) Calf ? 3.3 7.0 Calf Lat Mall 3.3 16.0 48 Right Sural Anti Sensory (Lat Mall) Calf ? 3.5 12.5 Calf Lat Mall 3.5 16.0 46 Motor Summary Table ?Stim Site NR Onset (ms) O-P Amp (mV) Site1 Site2 Delta-0 (ms) Dist (cm) Rk (m/s) Left Peroneal Motor (Vastus Med) Ankle ? 4.7 2.8 Popit Ankle 8.6 42.0 49 Popit ? 13.3 3.7 Right Peroneal Motor (Vastus Med) Ankle ? 4.5 4.1 Popit Ankle 8.4 40.0 48 Popit ? 12.9 3.6 Left Tibial Motor (Abd Muniz Brev) Ankle ? 4.4 1.8 Knee Ankle 8.6 43.0 50 Knee ? 13.0 1.2 Right Tibial Motor (Abd Muniz Brev) Ankle ? 4.5 5.0 Knee Ankle 8.2 41.0 50 Knee ? 12.7 3.3 F Wave Studies ?NR F-Lat (ms) L-R F-Lat (ms) Left Peroneal (Mrkrs) (EDB) ? 54.34 2.22 Right Peroneal (Mrkrs) (EDB) ? 52.11 2.22 Left Tibial (Mrkrs) (Abd Hallucis) ? 52.56 0.91 Right Tibial (Mrkrs) (Abd Hallucis) ? 51.65 0.91 EMG ?Side Muscle Nerve Root Ins Act Fibs Amp Dur Recrt Comment Right AntTibialis Dp Br Fibular L4-5 Nml Nml Nml Nml Nml Right Gastroc Tibial S1-2 Nml Nml Nml Nml Nml Right Fibularis Long Sup Br Fibular L5-S1 Nml Nml Nml Nml Nml Right Flex Dig Long Tibial L5-S2 Nml Nml Nml Nml Nml Right Ext Dig Brev Dp Br Fibular L5, S1 Nml Nml Nml Nml Nml Right QuadratusFem QuadFemoris L4-5, S1 Nml Nml Nml Nml Nml Left AntTibialis Dp Br Fibular L4-5 Nml Nml Nml Nml Nml Left Gastroc Tibial S1-2 Nml Nml Nml Nml Nml Left Fibularis Long Sup Br Fibular L5-S1 Nml Nml Nml Nml Nml Left Flex Dig Long Tibial L5-S2 Nml Nml Nml Nml Nml Left Ext Dig Brev Dp Br Fibular L5, S1 Nml Nml Nml Nml Nml Left QuadratusFem QuadFemoris L4-5, S1 Nml Nml Nml Nml Nml ? MTDD
== END 2025-03-22 09:48 | disposition home or self-care (01) ==
LOC: ANHNEURO 09:52
PROVIDERS: Visit Provider Podiatrist Foot & Ankle Surgery
DX: G60.8 Other hereditary and idiopathic neuropathies (principal)
CPT/HCPCS: 95886; 95910

== ENCOUNTER 2025-04-28 14:30 | Outpatient (CLI) | payer OTHER, SELFPAY ==
--- NOTE | ~2025-04-28 | MM_ITS ---
EXAMINATION: MM screening eric BI w leigh ann HISTORY: Screening TECHNIQUE: Craniocaudal and mediolateral oblique 3-D tomosynthesis images were obtained and synthetic 2-D images were generated. CAD analysis was submitted and interpreted. COMPARISON: Comparison to multiple prior studies sequentially, with oldest reviewed study dated 07/04. BREAST PARENCHYMAL COMPOSITION: Not dense: There are scattered areas of fibroglandular density. FINDINGS: There is no evidence of suspicious mass, calcification, or architectural distortion to sugg est malignancy in either breast. There has been no suspicious interval change. IMPRESSION: 1. No mammographic evidence of malignancy. 2. Recommend routine screening mammography in one year. BI-RADS Category 1: Negative Reviewed, dictated and finalized at location B.
--- OUTSIDE RECORDS SUMMARY | 2025-04-28 14:35 | XMS_ITS | Referral Summary ---
Author Organization [facility] Address [address] [place] [address] Care Team Providers Care Recreation Adviser Name Role Phone Norma Perry CELL ROOM OPERATOR Primary Care Provider Allergies No known active [...] 8:02 AM CDT Height 172.7 cm (5' 8) 07/07/2024 8:02 AM CDT Body Mass Index 29.8 07/07/2024 8:02 AM CDT Plan of Treatment Not on file Insurance [facility] [id number] [facility] [id number] Care Teams Recreation Adviser Relationship Specialty Start Date End Date Norma Perry NP [address] [address] PCP - General Nurse Practitioner 07/07/24
--- OUTSIDE RECORDS SUMMARY | 2025-04-28 14:35 | XMS_ITS | Clinical Summary ---
Author Organization [facility] Address [address] [place] [id number] Care Team Providers Care Charge Nurse Name Role Phone Norma Perry ASSEMBLER P[employer]AT Primary Care Provider Allergies No known active [...] 06/10/2022, 10/03/2021, Additional history exists Influenza Vaccine (Season Ended) 2025 08/05/2023, 09/02/2022, 08/07/2021, Additional history exists DTaP/Tdap/Td Vaccine (4 - Td or Tdap) 01/03/2029 01/03/2019, 12/20/2018, 10/16/2008, Additional history exists Zoster Vaccine Completed 09/18/2020, 06/16, 08/14/2014 Pneumococcal vaccine <65 Aged Out No longer eligible based on patient's age to complete this topic Insurance [facility] [id number] [facility] [id number] Care Teams Charge Nurse Relationship Specialty Start Date End Date Norma Perry NP [address] [facility] [place], [place] [phone] PCP - General Nurse Practitioner 07/07/24
--- OUTSIDE RECORDS SUMMARY | 2025-04-28 14:35 | XMS_ITS | Data Portability ---
Author Organization [place] [facility] [employer], Main Office Address [address] [place] [id number] Care Team Providers Care Stoneworker Name Role Phone CHEL PALOMARES Primary Care Provider [phone] Assessment Encounter Date Assessment Date Assessment LastModified [...] FSH (follicle-s timulating hormone), serum [address] (Lab), [address] [place], [address], 4 08:15:39 lh (luteinizin g hormone), serum [address] (Lab), [address] [place], [address], 4 08:15:39 estrone (E1), free, serum [address] (Lab), [address] [place], [address], 4 08:15:40 glycohemogl obin, total, blood [address] (Lab), [address] [place], [address], 4 08:15:40 ESR (erythrocyt e sedimentati on rate), blood [address] (Lab), [address] [place], [address], 4 08:15:40 C-reactive protein, quantitativ e, serum or plasma [address] (Lab), [address] [place], [address], 4 08:15:40 REAGAN (antinuclea r antibodies) screen, serum [address] (Lab), [address] [place], [address], 4 08:15:40 rf (rheumatoid factor), serum [address] (Lab), [address] [place], [address], 4 08:15:40 adh (antidiuret ic hormone), serum or plasma 2022 023 [email or web address] [facility] (Lab), [address] [place], [address], 3 13:31:26 TSH, serum or plasma 2022 023 KENDALL [facility] (Lab), [address] [place], [address], 3 15:39:35 lipid panel, serum 2022 023 [facility] (Lab), [address] [place], [address], 3 14:33:22 CMP, serum or plasma 2022 023 [facility] (Lab), [address] [place], [address], 3 14:36:17 Referral neurologist referral 2023 024 [email or web address] [facility], [address] [facility] [address], [place], [address], 4 12:52:50 substance abuse counselor referral 2022 023 [email or web address] Dee Castro DPM, [address] [place], [address], 4 08:41:51 Procedures colonoscopy screening (PROC) - Cologuard was positive. 2022 023 [email or web address] 256 Chris Garcia MD, [address], [place], [address], 3 10:24:25 Surgeries None recorded. Imaging XR, cervical spine, 2 or 3 view 2023 024 KENDALL Not available 4 12:22:38 CT, head, w/o contrast - *Please call pt to schedule* 2022 023 [facility], [address], [place], [address], 3 10:01:08 Medication Orders naproxen 500 mg tablet 2023 024 [id number], [address], [place], [place], [id number], 4 16:07:01 Patient TargetsNo targets recorded. Patient InstructionsNo instructions recorded. 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 Cut Pressman Referral for Pain in both feet Referring Physician: Rigoberto Nash, Family Medicine, Encounter Date: 09/02/2023 Neurologist Referral for Num bness of face Referring Physician: Chel Palomares Family Medicine, Encounter Date: 03/22/2024 Results Created Date Observation Date Name Description Value Unit Range Abnormal Flag Note LastModifiedBy Organization Detail LastModifiedTime 09/04/2009/04/2022 TSH thyroid-stim ulating hormone 7.320 uIU/m L 0.465- 4.680 high Not Available [facility] (Lab) [address] [place], [address], 09/04/2022 13:44:28 09/04/2009/04/2022 T4 FREE free T4 1.07 NG/dL 0.78-2 .19 Not Available [facility] (Lab) [address] [place], [address], 09/04/2022 13:28:30 09/04/2009/04/2022 COMPR EHENS BERNADETTE METAB OLIC PANEL sodium 141 mmol/ L 137-14 5 Not Available [facility] (Lab) [address] [place], [address], 09/04/2022 13:28:25 09/04/2009/04/2022 COMPR EHENS BERNADETTE METAB OLIC PANEL potassium 4.4 mmol/ L 3.5-5. 1 Not Available [facility] (Lab) [address] [place], [address], 09/04/2022 13:28:25 09/04/20 22 09/04/2022 COMPR EHENS BERNADETTE METAB OLIC PANEL chloride 107 mmol/ L 98-107 Not Available [facility] (Lab) [address] [place], [address], 09/04/2022 13:28:25 09/04/2006 0909/04/2022 COMPR EHENS BERNADETTE METAB OLIC PANEL carbon dioxide 31 mmol/ L 22-30 high Not Available [facility] (Lab) [address] [place], [address], 09/04/2022 13:28:25 09/04/20 22 09/04/2022 COMPR EHENS BERNADETTE METAB OLIC PANEL anion gap 7.4 mmol/ L 14-22 low Not Available [facility] (Lab) [address] [place], [address], 09/04/2022 13:28:25 09/04/20 22 09/04/2022 COMPR EHENS BERNADETTE METAB OLIC PANEL glucose 82 mg/dL 70-99 Not Available [facility] (Lab) [address] [place], [address], 09/04/2022 13:28:25 09/04/20 22 09/04/2022 COMPR EHENS BERNADETTE METAB OLIC PANEL BUN 9 mg/dL 8-19 Not Available [facility] (Lab) [address] [place], [address], 09/04/2022 13:28:25 09/04/20 22 09/04/2022 COMPR EHENS BERNADETTE METAB OLIC PANEL creatinine 0.73 mg/dL 0.66-1 .25 Not Available [facility] (Lab) [address] [place], [address], 09/04/2022 13:28:25 09/04/20 22 09/04/2022 COMPR EHENS BERNADETTE METAB OLIC PANEL GFR >60 Refer ence Range : [place] ge GFR Healt hy Adult : >60 [...] calcu lator is avail able on the [facility] websi te: https ://jaden [email or web address].[email or web address] [email or web address] rg/pr ofess ional s/kdo qi/gf r_cal culat or Not Available [facility] (Lab) [address] [place], [address], 09/04/2022 13:28:25 09/04/20 22 09/04/2022 COMPR EHENS BERNADETTE METAB OLIC PANEL alkaline phosphatase 68 U/L 38-126 Not Available [facility] (Lab) [address] [place], [address], 09/04/2022 13:28:25 09/04/20 22 09/04/2022 COMPR EHENS BERNADETTE METAB OLIC PANEL alanine aminotransfe rase 15 U/L 0-35 Not Available [facility] (Lab) [address] [place], [address], 09/04/2022 13:28:25 09/04/20 22 09/04/2022 COMPR EHENS BERNADETTE METAB OLIC PANEL aspartate aminotransfe rase 37 U/L 15-37 Not Available [facility] (Lab) [address] [place], [address], 09/04/2022 13:28:25 09/04/20 22 09/04/2022 COMPR EHENS BERNADETTE METAB OLIC PANEL bilirubin, total 0.40 mg/dL 0.20-1 .30 Not Available [facility] (Lab) [address] [place], [address], 09/04/2022 13:28:25 09/04/20 22 09/04/2022 COMPR EHENS BERNADETTE METAB OLIC PANEL calcium 9.4 mg/dL 8.4-10 .2 Not Available [facility] (Lab) [address] [place], [address], 09/04/2022 13:28:25 09/04/20 22 09/04/2022 COMPR EHENS BERNADETTE METAB OLIC PANEL total protein 6.8 g/dL 6.3-8. 2 Not Available [facility] (Lab) [address] [place], [address], 09/04/2022 13:28:25 09/04/20 22 09/04/2022 COMPR EHENS BERNADETTE METAB OLIC PANEL albumin 4.0 g/dL 3.4-5. 0 Not Available [facility] (Lab) [address] [place], [address], 09/04/2022 13:28:25 09/04/20 22 09/04/2022 COMPR EHENS BERNADETTE METAB OLIC PANEL globulin 2.8 g/dL 2.6-4. 2 Not Available [facility] (Lab) [address] [place], [address], 09/04/2022 13:28:25 09/04/20 22 09/04/2022 COMPR EHENS BERNADETTE METAB OLIC PANEL A/G ratio 1.4 ratio 1.0-2. 0 Not Available [facility] (Lab) [address] [place], [address], 09/04/2022 13:28:25 09/04/20 22 09/04/2022 LIPID PANEL cholesterol 213 mg/dL 140-19 9 high NIH QUANG NSUS RECOM MENDA TION FOR GÓMEZ STERO L: ADULT CHILD LOW RISK: <200 <170 BORDE RLINE : <200- 239 ----- HIGH RISK: >240 >200 Not Available [facility] (Lab) [address] [place], [address], 09/04/2022 13:28:20 09/04/20 22 09/04/2022 LIPID PANEL triglyceride s 93 mg/dL 0-150 NIH QUANG NSUS REPOR T RECOM MENDA TION FOR TRIGL YCERI ESTHER: ADULT CHILD LOW RISK: <150 ----- BODER LINE: 150-1 99 ----- HIGH RISK: >200 ----- Not Available [facility] (Lab) [address] [place], [address], 09/04/2022 13:28:20 09/04/20 22 09/04/2022 LIPID PANEL HDL cholesterol 49 mg/dL 40- Not Available [facility] (Lab) [address] [place], [address], 09/04/2022 13:28:20 09/04/20 22 09/04/2022 LIPID PANEL [...] WILL NOT BE REPOR ARLYN. Not Available [facility] (Lab) [address] [place], [address], 09/04/2022 13:28:20 09/15/20 22 09/15/2022 COLOG UARD [...] is negat bernadette. TEST DESCR IPTIO N: Galliano site algor ithmi c ady sis of [...] years or older , who are at [facility] for color ectal cance r (CRC) . Colog uard has been appro deepali for use by the [place]. FDA. The perfo rmanc e of Colog uard was estab lishe d in a cross secti onal study of [facility] adult s aged 50-84 . Colog [...] of 10,00 0 indiv idual s at [facility] risk for color ectal cance r who [...] at www.c ologu amberly.c om. Not Available [facility] (Cologuard Orders Only) [address], [place], [address], 09/19/2022 17:23:03 09/02/20 23 09/02/2023 LIPID PANEL cholesterol 254 mg/dL 140-19 9 high NIH QUANG NSUS RECOM MENDA TION FOR GÓMEZ STERO L: ADULT CHILD LOW RISK: <200 <170 BORDE RLINE : <200- 239 ----- HIGH RISK: >240 >200 Not Available [facility] (Lab) [address] [place], [address], 09/02/2023 14:33:22 09/02/20 23 09/02/2023 LIPID PANEL triglyceride s 115 mg/dL 0-150 NIH QUANG NSUS REPOR T RECOM MENDA TION FOR TRIGL YCERI ESTHER: ADULT CHILD LOW RISK: <150 ----- BODER LINE: 150-1 99 ----- HIGH RISK: >200 ----- Not Available [facility] (Lab) [address] [place], [address], 09/02/2023 14:33:22 09/02/20 23 09/02/2023 LIPID PANEL HDL cholesterol 56 mg/dL 40- Not Available [facility] (Lab) [address] [place], [address], 09/02/2023 14:33:22 09/02/2009/02/2023 LIPID PANEL LDL cholesterol, [...] WILL NOT BE REPOR ARLYN. Not Available [facility] (Lab) [address] [place], [address], 09/02/2023 14:33:22 09/02/20 23 09/02/2023 COMPR EHENS BERNADETTE METAB OLIC PANEL sodium 138 mmol/ L 137-14 5 Not Available [facility] (Lab) [address] [place], [address], 09/02/2023 15:55:49 09/02/2009/02/2023 COMPR EHENS BERNADETTE METAB OLIC PANEL potassium 4.7 mmol/ L 3.5-5. 1 Not Available [facility] (Lab) [address] [place], [address], 09/02/2023 15:55:49 09/02/2009/02/2023 COMPR EHENS BERNADETTE METAB OLIC PANEL chloride 104 mmol/ L 98-107 Not Available [facility] (Lab) [address] [place], [address], 09/02/2023 15:55:49 09/02/2009/02/2023 COMPR EHENS BERNADETTE METAB OLIC PANEL carbon dioxide 29 mmol/ L 22-30 Not Available [facility] (Lab) [address] [place], [address], 09/02/2023 15:55:49 09/02/20 23 09/02/2023 COMPR EHENS BERNADETTE METAB OLIC PANEL anion gap 9.7 mmol/ L 14-22 low Not Available [facility] (Lab) [address] [place], [address], 09/02/2023 15:55:49 09/02/2009/02/2023 COMPR EHENS BERNADETTE METAB OLIC PANEL glucose 87 mg/dL 70-99 Not Available [facility] (Lab) [address] [place], [address], 09/02/2023 15:55:49 09/02/2009/02/2023 COMPR EHENS BERNADETTE METAB OLIC PANEL BUN 22 mg/dL 8-19 high Not Available [facility] (Lab) [address] [place], [address], 09/02/2023 15:55:49 09/02/2009/02/2023 COMPR EHENS BERNADETTE METAB OLIC PANEL creatinine 0.83 mg/dL 0.66-1 .25 Not Available [facility] (Lab) [address] [place], [address], 09/02/2023 15:55:49 09/02/2009/02/2023 COMPR EHENS BERNADETTE METAB OLIC PANEL GFR >60 Refer ence Range : [place] GFR Healt hy Adult : >60 [...] calcu lator is avail able on the [facility] websi te: https ://ww w.kid ke.o rg/pr ofess ional s/kdo qi/gf r_cal culat or Not Available [facility] (Lab) [address] [place], [address], 09/02/2023 15:55:49 09/02/2009/02/2023 COMPR EHENS BERNADETTE METAB OLIC PANEL alkaline phosphatase 61 U/L 38-126 Not Available [facility] (Lab) [address] [place], [address], 09/02/2023 15:55:49 09/02/2009/02/2023 COMPR EHENS BERNADETTE METAB OLIC PANEL alanine aminotransfe rase 21 U/L 0-35 Not Available [facility] (Lab) [address] [place], [address], 09/02/2023 15:55:49 09/02/2009/02/2023 COMPR EHENS BERNADETTE METAB OLIC PANEL aspartate aminotransfe rase 26 U/L 15-37 Not Available [facility] (Lab) [address] [place], [address], 09/02/2023 15:55:49 09/02/2009/02/2023 COMPR EHENS BERNADETTE METAB OLIC PANEL bilirubin, total 0.40 mg/dL 0.20-1 .30 Not Available [facility] (Lab) [address] [place], [address], 09/02/2023 15:55:49 09/02/2009/02/2023 COMPR EHENS BERNADETTE METAB OLIC PANEL calcium 10.0 mg/dL 8.4-10 .2 Not Available [facility] (Lab) [address] [place], [address], 09/02/2023 15:55:49 09/02/2009/02/2023 COMPR EHENS BERNADETTE METAB OLIC PANEL total protein 6.4 g/dL 6.3-8. 2 Not Available [facility] (Lab) [address] [place], [address], 09/02/2023 15:55:49 09/02/2009/02/2023 COMPR EHENS BERNADETTE METAB OLIC PANEL albumin 4.0 g/dL 3.4-5. 0 Not Available [facility] (Lab) [address] [place], [address], 09/02/2023 15:55:49 09/02/2009/02/2023 COMPR EHENS BERNADETTE METAB OLIC PANEL globulin 2.4 g/dL 2.6-4. 2 low Not Available [facility] (Lab) [address] [place], [address], 09/02/2023 15:55:49 09/02/2009/02/2023 COMPR EHENS BERNADETTE METAB OLIC PANEL A/G ratio 1.7 ratio 1.0-2. 0 Not Available [facility] (Lab) [address] [place], [address], 09/02/2023 15:55:49 09/02/2009/02/2023 TSH W/REF MURIEL FT4 TSH with reflex free T4 4.560 uIU/m L 0.465- 4.680 Not Available [facility] (Lab) [address] [place], [address], 09/02/2023 15:39:35 10/02/2010/07/2023 ADH/A NTIDI URETI C HORMO NE adh 1.0 pg/mL 0.0-4. 7 Test( s) 27651 9-ADH This test was devel oped and its perfo rmanc e kathryn cteri stics deter mined by [facility]. It has not been clear ed or appro deepali by the Food and Drug Admin istra tion. Perfo rmed at: [facility] [place] [address] [facility] , [place] [address] Lab Direc tor: Ivone gray MD, Phone : [phone] Not Available [facility] (Lab) [address] [facility], [place], [address], 10/07/2023 14:11:57 11/18/19 23 11/18/2022 MAMMO , scree terrance, bilat eral No observ ation record ed. [id number], [place], [address], 01/14/2023 22:08:28 10/26/[address], head, w/o contr ast [facility] [address] [place] [address] Patien t Name: MISSY PATTERSON Access ion #: [id number] Sex: F : 1959 2 1 [...] 1 [facility] [address] [facility] [place] [address] Patien t Name: MISSY PATTERSON Access ion #: [id number] Sex: F : 1959 2 1 [...] Date/T christian: 2022 9:00 AM Page 2 [email or web address] [facility] (Imaging) [address] [place], [address], 10/30/2023 11:17:26 10/26/20 23 10/26/2023 CT, head, w/o contr ast No observ ation record ed. [facility] [address] [place] [address] , [place], [address], 11/25/2023 12:43:44 12/01/19 24 12/01/2023 US, duple x, arter ial, lower extre mity No observ ation record ed. [email or web address] [facility] [address] [place], [address], 12/14/2023 12:33:17 03/29/20 24 03/29/2024 XR, cervi trudi spine , 2 or 3 view No observ ation record ed. [email or web address] [facility] [address] [place], [address], 03/29/2024 12:57:24 03/29/20 24 03/29/2024 XR, cervi trudi spine , 2 or 3 view No observ ation record ed. [email or web address] [address] , [place], [address], 03/29/2024 12:48:56 04/13/20 24 04/12/2024 MAMMO , scree terrance, digit al, bilat eral No observ ation record ed. [email or web address] [place] [address], [place], [address], 04/14/2024 13:42:21 04/13/20 24 04/12/2024 MAMMO , scree terrance, digit al, bilat eral No observ ation record ed. [email or web address] [facility] [address], [place], [address], 04/14/2024 12:45:03 11/03/20 24 11/02/2024 MRI, brain , w/wo contr ast No observ ation record ed. [address], [address], 11/03/2024 09:04:56 11/03/2011/02/2024 MR, angio gram, head + neck, w/o contr ast No observ ation record ed. [address], [address], 11/03/2024 09:06:05 11/03/20 24 11/02/2024 MR, angio gram, brain , w/ contr ast No observ ation record ed. [address], [address], 11/03/2024 09:07:12 11/03/20 24 11/02/2024 MRI, cervi trudi spine , w/wo contr ast No observ ation record ed. [address], [address], 11/03/2024 09:08:32 11/03/20 24 11/02/2024 elect roenc ephal ogram No observ ation record ed. [email or web address] Not Available 2023 13:59:41 Result Notes Documentation Provider Name and Address Organization Details Recorded Time Ct, Head, W/o Contrast : [address] [address] Patient Name: MISSY PATTERSON Sex: F : 1960 Dictated By: Adama Finley Attending Physician: , Ordering Physician: RIGOBERTO GRIER Exam Date: 10/26/2023 08:08 AM Exam Name: CT HEAD WO Admitting Diagnosis(es): STUDY: CT BRAIN WITHOUT CONTRAST HISTORY: Headache and numbness all over the face. TECHNIQUE: Axial CT scan of the brain was performed without administration of intravenous contrast. Sagittal and coronal reconstructions were obtained. Radiation dose reduction was achieved using ALARA (as low as reasonably achievable) principals including automatic exposure control, adjusting the mA and/or KV setting according to patient's size and weight, the use of iterative reconstruction techniques as well as performing sagittal and coronal reconstruction images when applicable. FINDINGS: The visualized brain parenchyma shows normal appearance. Walsh-white matter differentiation is maintained. The brainstem, the cerebellum is unremarkable. The pituitary gland, the pineal gland, the optic chiasm are unremarkable. Focal areas of hypodensities in the bilateral periventricular and subcortical white matter most likely represent small vessel ischemic disease. Prominence of the sulcal spaces, basal cisterns, sylvian fissures and the ventricular system is consistent with patients age. The midline structures are not deviated. The ventricular system is normal in size and shape. The cerebello-pontine angles are clear. The IACs are unremarkable. The visualised paranasal sinuses are normal. The osseous structures in the skull base are unremarkable. The osseous structures in the calvarium show normal density. IMPRESSION: 1. No significant abnormality detected in the brain parenchyma. No evidence Page [address] [place] [id number] Patient Name: MISSY PATTERSON Sex: F : 1960 Dictated By: Adama Finley Attending Physician: , Ordering Physician: RIGOBERTO GRIER Exam Date: 10/26/2023 08:08 AM Exam Name: CT HEAD WO Admitting Diagnosis(es): of infarct, mass or hemorrhage seen. 2. Small vessel ischemic disease in the bilateral periventricular and subcortical white matter. 3. Age-appropriate generalized brain atrophy. Signature Date/Time: 10/26/2023 9:00 AM Page 2 INESSA Rendon [address] [facility], [facility] [[email or web address] [address], [place], [address], [place] [facility] [employer] [facility] 10/30/2023 11:17:26 Problems Name Problem SNOMED Code Status Onset Date Resolution Date Notes Provider Name and Address Organization Details Recorded Time Menopausal and postmenopa usal disorders 629917145 Active 2019 Not Available [employer] 3 06:19:49 Ingrowing nail 333589521 Active 2021 Not Available [employer] 3 06:19:49 Hypothyroi dism 60333041 Active 2004 Not Available [employer] 3 06:19:49 Colorectal cancer detected by DNA-based stool screening 958996701 Active 2021 Not Available [employer] 3 06:19:49 Dystrophia unguium 39713233 Active 2021 Not Available [employer] 3 06:19:49 Hyperlipid emia 61310569 Active 2022 Not Available [employer] 3 06:19:49 Pain in both feet 3564305707213 9102 Active 2022 Not Available [employer] 3 06:19:49 Tension-ty pe headache 434752407 Active 2022 Not Available [employer] 3 06:19:49 Increased thirst 222729461 Active 2022 Not Available [employer] 3 06:19:49 Numbness of face 075167067 Active 2022 Not Available [employer] 3 06:19:49 Diabetes insipidus 42949097 Active 2022 Not Available [employer] 3 06:19:49 Small vessel cerebrovas cular disease 819471507 Active 2022 Not Available [employer] 3 06:19:49 Mood swings 30753021 Active 2023 TYLER Sparks [address], [place], [address] , [employer] 4 15:53:35 Non-menopa usal hot flash 0324698973470 09 Active 2023 PEDRITO SparksP [address], [place], [address] , [employer] 4 15:54:44 Amenorrhea 42338230 Active 2023 PEDRITO SparksP [address], [place], [address] , [employer] 4 15:55:08 Polyarthro misael 04853699 Active 2023 PEDRITO SparksP [address], [place], [address] , [employer] 4 15:56:55 Anti-nucle ar factor detected 842772910 Active 2023 PEDRITO SparksP [address], [place], [address] , [employer] 4 10:50:09 Problem Notes None recorded. Procedures Surgical History Date Name Laterality Status Provider Name and Address Organization Details Recorded Time 08/14/20 21 screening mammography completed Not Available [facility] 01/14/2023 22:06:20 Endometrial cryoablation completed Not Available [facility] 01/14/2023 22:06:20 Imaging Results None recorded. Procedure Notes None recorded. Medical Equipment None [...] Updated DateTime 4 172.72 cm 30.6 kg/m2 32552.0 7 g 97.1 [degF] 68 /min 98 % 98 % 143 mm[Hg] 93 mm[Hg] Dee Tapia [place] [facility] [place] [employer] 4 15:31:46 Date Recorded Body mass index (BMI) Body height Body weight Provider Name and Address Organization Details Last Updated DateTime 08/28/2022 30.7 kg/m2 172.72 cm 70989.66 g Not Available [facility] 01/14/2023 22:06:51 Date Recorded Body mass index (BMI) Body height Oxygen saturation Oxygen saturation in Arterial blood by Pulse oximetry Heart rate Body temperature Body weight Systolic blood pressure Diastolic blood pressure Provider Name and Address Organization Details Last Updated DateTime 2 31.5 kg/m2 172.72 cm 96 % 96 % 77 /min 97.4 [degF] 05328.6 2 g 122 mm[Hg] 80 mm[Hg] Not Available [facility] 3 22:06:50 Date Recorded Body weight Body mass index (BMI) Body height Heart rate Oxygen saturation Oxygen saturation in Arterial blood by Pulse oximetry Body temperature Systolic blood pressure Diastolic blood pressure Provider Name and Address Organization Details Last Updated DateTime 3 71836.0 7 g 30.6 kg/m2 172.72 cm 83 /min 98 % 98 % 97.6 [degF] 124 mm[Hg] 80 mm[Hg] Aiyana Styles MA [employer] 3 09:14:05 Date Recorded Body height Body mass index (BMI) Body weight Body temperature Heart rate Oxygen saturation Oxygen saturation in Arterial blood by Pulse oximetry Systolic blood pressure Diastolic blood pressure Provider Name and Address Organization Details Last Updated DateTime 3 172.72 cm 31.5 kg/m2 73396.6 2 g 97 [degF] 65 /min 99 % 99 % 118 mm[Hg] 84 mm[Hg] GÓMEZ Francis [employer] 3 12:46:16 Social History Question Answer Notes LastModified by MVERSE ion Details LastModified Time Tobacco Smoking Status Never Smoker Not Available [facility] 01/14/2023 22:06:18 In The 14 Days Before Symptom Onset, Have You Had Close Contact With A Laboratory-confirm ed COVID-19 While That Case Was Ill? No [id number] Information not available 01/14/2023 In The 14 Days Before Symptom Onset, Have You Had Close Contact With A Person Who Is Under Investigation For COVID-19 While That Person Was Ill? No [id number] Information not available 01/14/2023 Have You Recently Traveled Abroad? No [id number] Information not available 01/14/2023 Sex: Unknown Functional Status None recorded. Mental Status None recorded. Family History Relationship Description Onset Age of this Age Resolved Age Notes LastModified by Organization Details LastModified Time Paternal Aunt Family history of malignant neoplasm [email or web address] Not available 03/22 15:15:10 Paternal Uncle Family history of malignant neoplasm [email or web address] Not available 03/22 15:15:10 Father Dementia [email or web address] Not availab le 03/22/2024 15:15:10 Mother Myocardial infarction [id number] Not available 01/14/2023 22:06:21 Medical History Condition Response BLINDNESS N RHEUMATIC FEVER N KIDNEY STONES N BLADDER PROBLEMS N MRSA N OTHER # 1 N POLIO N LUNG DISEASE/DISORDER N HISTORY OF DRUG ABUSE N RADIATION / CHEMOTHERAPY N COPD N Other # 2 N BLOOD DISEASES N SURGERY N EAR OR HEARING PROBLEMS N MUMPS N SHINGLES N FEMALE PROBLEMS / INFECTIONS N BOWEL PROBLEMS N DEPRESSION (INCLUDING POST ) N STROKE/TIA N THYROID DISEASE N ULCERS N BENIGN PROSTATIC HYPERPLASIA N MEASLES N CERVICALGIA N TB SKIN TEST N HYPOTENSION N MYOCARDIAL INFARCTION N PARAPELGIA N OBESITY [...] GLAUCOMA N FOOT PROBLEM N DIVERTICULITIS N SLEEP APNEA N CHICKENPOX N ALLERGIES/HAYFEVER N INFECTIOUS DISEASE N PROSTATE N HEART ARRHYTHMIA N INSOMNIA N HIGH CHOLESTEROL / HYPERLIPIDEMIA N EYE PROBLEMS N HYPERTHYROIDISM N EATING DISORDER N EDEMA N CHRONIC PAIN SYNDROME N CONSTIPATION N CAROTID BLOCKAGE N BACK / NECK PROBLEMS N HAVE YOU BEEN HOSPITALIZED OR SEEN IN [facility] IN THE PAST YEAR ? N ATHEROSCLEROSIS [...] DISORDER N ALZHEIMER'S DISEASE N PAIN N DEMENTIA N HERPES N SEIZURES/EPILEPSY N HEADACHES/MIGRAINES N VASCULAR DISEASE N PACEMAKER N DIZZINESS N HEART DISEASE/HEART PROBLEMS N KIDNEY DISEASE N SCARLET FEVER N MULTIPLE SCLEROSIS N DEVELOPMENTAL OR BEHAVIORAL DISORDERS N MENTAL DISORDER/ILLNESS N CANCER: SPECIFY N CARDIAC ARRHYTHMIA N PNEUMONIA N ATRIAL FIBRILLATION N Gall Stones N PULMONARY EMBOLISM N AUTOIMMUNE DISEASE N Gynecological HistoryNo gynecological history recorded. Obstetrics History GPAL:G 0 P 0 0 0 0 Immunizations Vaccine Type Date Status Note Provider Nam e and Address Organization Details Recorded Time zoster, unspecified formulation 0 completed TYLER Sparks [address], [place], [address], [employer] 03/22/2024 16:08:19 influenza, unspecified formulation 0 completed TYLER Sparks [address], [place], [address], [employer] 03/22/2024 16:08:19 Influenza, split virus, quadrivalent, preservative 9 completed Not Available [facility] 10/31/2023 06:19:49 Tdap 9 completed TYLER Sparks [address], [place], [address], [employer] 03/22/2024 16:08:19 Influenza, split virus, quadrivalent, preservative 2 completed TYLER Sparks [address], [place], [address], [employer] 03/22/2024 16:08:18 COVID-19, mRNA, LNP-S, bivalent, PF, 50 mcg/0.5 mL or 25mcg/0.25 mL dose 2 completed TYLER Sparks [address], [place], [address], [employer] 03/22/2024 16:08:19 Influenza, MDCK, quadrivalent, PF 0 completed TYLER Sparks [address], [place], [address], [employer] 03/22/2024 16:08:18 Influenza, MDCK, quadrivalent, PF 3 completed TYLER Sparks [address], [place], [address], [employer] [facility] [employer] [facility] 03/22/2024 16:08:18 Influenza, MDCK, quadrivalent, PF 2 completed TYLER Sparks [address], [place], [address], [employer] [facility] [employer] [facility] 03/22/2024 16:08:19 zoster recombinant 0 completed TYLER Sparks [address], [place], [address], [employer] [facility] [employer] [facility] 03/22/2024 16:08:19 zoster recombinant 0 completed TYLER Sparks [address], [place], [address], [employer] [facility] [employer] [facility] 03/22/2024 16:08:19 Influenza, live, trivalent, intranasal 0 completed TYLER Sparks [address], [place], [address], [employer] [facility] [employer] [facility] 03/22/2024 16:08:19 COVID-19, mRNA, LNP-S, PF, 100 mcg/0.5mL dose or 50 mcg/0.25mL dose 1 completed TYLER Sparks [address], [place], [address], [employer] [facility] [employer] [facility] 03/22/2024 16:08:19 COVID-19, mRNA, LNP-S, PF, 100 mcg/0.5mL dose or 50 mcg/0.25mL dose 1 completed TYLER Sparks [address], [place], [address], [employer] [facility] [employer] [facility] 03/22/2024 16:08:19 COVID-19, mRNA, LNP-S, PF, 100 mcg/0.5mL dose or 50 mcg/0.25mL dose 2 completed TYLER Sparks [address], [place], [address], [facility] [employer] [facility] 03/22/2024 16:08:19 COVID-19, mRNA, LNP-S, PF, 100 mcg/0.5mL dose or 50 mcg/0.25mL dose 1 completed TYLER Sparks [address], [place], [address], [facility] [employer] [facility] [employer] [facility] 03/22/2024 16:08:19 Tdap 9 completed TYLER Sparks [address], [place], [address], [employer] [facility] [employer] [facility] 03/22/2024 16:08:19 Tdap [address] Sparks [address], [place], [address], [employer] [facility] [employer] [facility] 03/22/2024 16:08:19 zoster live 4 completed TYLER Sparks [address], [place], [address], [employer] [facility] [employer] [facility] 03/22/2024 16:08:19 Influenza, split virus, trivalent, PF 3 completed TYLER Sparks [address], [place], [address], [employer] [facility] [employer] [facility] 03/22/2024 16:08:19 Td (adult), 5 Lf tetanus toxoid, preservative free, adsorbed 0 completed TYLER Sparks [address], [place], [address], [facility] [employer] [facility] [employer] [facility] 03/22/2024 16:08:19 Td (adult), 5 Lf tetanus toxoid, preservative free, adsorbed 5 completed TYLER Sparks [address], [place], [address], [employer] [facility] [employer] [facility] 03/22/2024 16:08:19 Influenza, split virus, quadrivalent, PF 1 completed TYLER Sparks [address], [place], [address], [employer] [facility] 03/22/2024 16:08:19 Influenza, split virus, quadrivalent, PF 8 completed TYLER Sparks [address], [place], [address], [employer] 03/22/2024 16:08:19 Influenza, split virus, quadrivalent, PF 0 completed TYLER Sparks [address], [place], [address], [employer] 03/22/2024 16:08:19 Influenza, split virus, quadrivalent, PF 5 completed TYLER Sparks [address], [place], [address], [employer] 03/22/2024 16:08:19 Past Encounters Encounter ID Performer Location Encounter Start Date Encounter Closed Date Diagnosis/Indication Diagnosis SNOMED-CT Code Diagnosis ICD10 Code Diagnosis Note [id number] Rigoberto Nash MD [facility] [place] [address] [place] [address] 07/08/2021 00:00:00 07/08/2021 21:35:43 [id number] Rigoberto Nash MD [facility] [place] [address] [place] [address] 10/31/2021 00:00:00 10/31/2021 21:19:17 [id number] [facility]Histor ic_[facility]way [facility] Podiatry Bakari Guzman [address] [place] [address] 11/18/2021 00:00:00 11/18/2021 14:48:44 [id number] [facility]Histor ic_Gateway _ATHENA_M IGRATION_ DEFAULT_1 _1 , 11/29/2021 00:00:00 12/02/2021 09:47:21 [id number] [facility]Histor ic_Gateway [facility] [place] [address] [place] [address] 12/12/2021 00:00:00 12/15/2021 15:07:12 [id number] S_Histor ic_Gateway [facility] [place] [address] [place] [address] 08/28/2022 00:00:00 08/28/2022 16:57:26 [id number] Rigoberto Nash MD [facility] [place] [address] [place] [address] 09/01/2022 00:00:00 09/01/2022 19:59:49 [id number] Rigoberto Nash MD [facility] [place] [address] [place] [address] 09/02/2023 09:02:44 09/02/2023 09:33:40 Adult health examination 625806689 Z00.00 Hyperlipidemia 15459844 E78.5 Hypothyroidism 60183949 E03.9 Screening for malignant neoplasm of colon 783878813 Z12.11 Pain in both feet 092074 3961 4967407 M79.037 [id number] Rigoberto Nash MD [facility] [place] [address] [place] [address] 10/02/2023 12:24:35 10/02/2023 13:31:48 Tension-type headache 819160327 G44.209 Suggest seeing a chiropract or. Increased thirst 9047650 03 R63.1 Will check ADH Numbness of face 1646284 09 R20.0 Diabetes insipidus 88696 004 E23.2 ??? [id number] Honorio Alonzo MD [facility] [address] [place] [address] 03/22/2024 15:13:53 03/22/2024 17:33:11 Non-menopausal hot flash 0710019011 51009 R23.2 Polyarthropathy 43451636 M13.0 Numbness of face 9489156 09 R20.0 Pain in both feet 290846 2228 3574269 M79.671 Health Concerns Section Related Observation LastModified by Organization Detai ls LastModified Time None Recorded Concern Status LastModified by Organization Details LastModified Time None Recorded Advance Directives Directive None Recorded Payers Insurance Date Sequence Insurance Name Policy Number Policy Brennan Covered Member ID Brennan Member ID Guarantor Name 03/21/2024 1 [employer] NOW (INDEMNITY) [id number] Missy Patterson [id number] OI Missy Patterson 03/21/2024 1 [place] - OPEN ACCESS Missy Patterson [id number] OI Missy Patterson Notes Date Note Type Note Provider Name and Address Organization Details Recorded Time 09/02/2023 text/html Here today for a n annual physical. Her cologuard was positive and needs colonoscopy. Needs BW. Had mammogram in 12/08 and will need it in 12/09.Her feet hurt all the time and needs to see substance abuse counselor. No other issues or complaints. working on losing weight and is coming off slow. Rigoberto Nash MD [address] [facility] [place] [address], [place], [address], [employer] [facility] [employer] 09/02/2023 09:39:54 10/02/2023 text/html Here today c/o facial numbness on both sides that comes and goes. It has been going on x a couple of weeks.Has pain in the back of head.Feels like is always dehydrated. Can not get enough water. Had BW in 09/07 and was a little dehydrated. No DM2 Rigoberto Nash MD [address] [facility] [address] [facility] [[email or web address] [address], [place], [address], [employer] 10/03/2023 10:47:41 03/22/2024 text/html Missy Patterson is a 63 year old female patient here to transition care. She was previously under the care of Dr. Nash. She has concerns today with pain on the cervical spine. She feels that this is connected with numbness to her face. She has a family history of cardiac issues. She went to a foot gatherer, they did stress tests, EKGs, and plan [...] colonoscopy 09/02/2023 was clear TYLER Sparks [address] [facility], [facility] [[email or web address] [address], [place], [address], [place] [facility] 03/29/2024 17:03:54 OBGyn Episode No OBEpisode recorded.
--- OUTSIDE RECORDS SUMMARY | 2025-04-28 14:35 | XMS_ITS | Clinical Summary ---
Author Organization [facility] Address [address] [place] [address] Care Team Providers Care Industrial Electrical Engineer Name Role Phone Unavailable Primary Care Provider Unavailabl e Source Comments [facility],non-owned Affiliates and Associated Physician Practices is amultiple site organization consisting of ambulatory clinics and hospital sitesin [place], [place], [place] and [place]. This disclosure is being madepursuant to the Care Everywhere program and may not contain all information available regarding this patient. 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 Procedure Code(s): --- Professional --- 91444, Colonoscopy, flexible, proximal to splenic flexure; diagnostic, with or without collection of specimen(s) by brushing or washing, with or without colon decompression (separate procedure) --- Technical --- 94862, Colonoscopy, flexible, proximal to splenic flexure; diagnostic, with or without collection of specimen(s) by brushing or washing, with or without colon decompression (separate procedure) Diagnosis Code(s): --- Professional --- V76.51, Special screening for malignant neoplasms of colon --- Technical --- V76.51, Special screening for malignant neoplasms of colon CPT copyright 2013 [employer]. All rights reserved. The codes documented in this report are preliminary and upon revenue accounting manager review may be revised to meet current compliance requirements. Toy Sinha MD 06/05/2014 1:18 PM This report has been signed electronically. Number of Addenda: 0 Note Initiated On: 06/05/2014 12:55 PM [facility] 06/05/2014 12:5 5 PM CDT us Toy Sinha MD GI PROCEDURE ORDERABLES Edited R esult - Final [facility] from Last 3 Months or Most Recently Relevant to Health Maintenance Insurance [employer] HE[employer]
--- OUTSIDE RECORDS SUMMARY | 2025-04-28 14:35 | XMS_ITS | Clinical Summary ---
Author Organization 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 Gender Identity Not on file Sexual Orientation Not on file Plan of Treatment Health Maintenance Due Date Last Done Comments Hepatitis C Virus (HCV) Screening 1962 Colonoscopy 2007 Colorectal Cancer Screening 2007 Cologuard 2012 Immunochemical Fecal Occult Blood 2012 Pneumococcal Immunization (50+ years) (1 of 1 - PCV) 2012 SARS-COV-2 Immunization ( season) 2024 10/03/2021, 03/01/2021, 01/29/2021 Influenza Immunization (Season Ended) 2025 08/07/2021, 09/10/2020, 09/10/2020, Additional history exists Respiratory Syncytial Virus (RSV) Immunization (Adult) (1 - 1-dose 75+ series) 2037 DTaP/Tdap/Td Immunization Discontinued 2018, 12/20/2018, 10/16/2008, Additional history exists TdaP Immunization Completed 01/03/2019, , 10/16/2008 Zoster Immunization Completed 09/18/2020, 09/18/2020, 07/04/2020, Additional history exists Hepatitis B Immunization Aged Out No longer eligible based on patient's age to complete this topic Human Papillomavirus (HPV) Immunization Aged Out No longer eligible based on patient's age to complete this topic Meningococcal Immunization (ACWY) Aged Out No longer eligible based on patient's age to complete this topic Rotavirus Immunization Aged Out No lo nger eligible based on patient's age to complete this topic
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
== END 2025-04-28 14:31 | disposition home or self-care (01) ==
LOC: ANHIMG 14:31
DX: Z12.31 Encounter for screening mammogram for malignant neoplasm of breast (principal)
CPT/HCPCS: 77063; 77067